=== PATIENT | male | born 1960 | race Caucasian/White ===

== ENCOUNTER → 2016-08-13 | Outpatient (CLI) | payer OTHER ==
[~2016-08-13] MED LIST: AMOX500C3 PO; AMOX875T PO; ASPI81TA28 PO; ATOR-26 PO; CIPR1TAB11 PO; CLC/300 PO; DOXY100C76 PO; DTRSR/10 PO; LEVO-366 PO; LISI-729 PO; LPR25 PO; LSN5 PO; LSX20 PO; MULTTAB PO; OXYB10TA13 PO; OXYC-57 PO; PENI-82 PO; PLV75 PO
[2016-08-13 17:26] LABS: HEMATOCRIT 38.4 % (42-52); MEAN CELL VOLUME 89.7 fL (80-100); MEAN CORPUSCULAR HEMOGLOBIN 29.9 pg (25-34); MEAN CORPUSCULAR HGB CONC 33.3 g/dl (32-36); MEAN PLATELET VOLUME 9.4 fL (7.4-10.4); PLATELET COUNT 677 K/uL (130-400); RED BLOOD COUNT 4.28 M/uL (4.7-6.1); WHITE BLOOD COUNT 15.18 K/uL (4.8-10.8)
[2016-08-13 17:44] LABS: BLOOD UREA NITROGEN 19 mg/dl (7-18); BUN/CREATININE RATIO 19.4 (10-20); CARBON DIOXIDE 25 mmol/L (21-32); CHLORIDE 104 mmol/L (98-107); GLUCOSE 111 mg/dl (70-99); SODIUM 139 mmol/L (136-145)
[2016-08-13 17:47] LABS: CHOLESTEROL 132 mg/dl (0-200); CHOLESTEROL/HDL RATIO 3.8; HDL CHOLESTEROL 35 mg/dl; LDL CHOLESTEROL CALCULATED 73 mg/dl; TRIGLYCERIDES 119 mg/dl (0-150); VERY LOW DENSITY LIPOPROT CALC 24 mg/dl
== END | disposition home or self-care (01) ==
LOC: C.LABPVFM 14:29
PROVIDERS: ATTEND Family Medicine
DX: T14.8 Other injury of unspecified body region (principal); X58.XXXA Exposure to other specified factors, initial encounter; I10 Essential (primary) hypertension; I25.10 Atherosclerotic heart disease of native coronary artery without angina pectoris; Z11.59 Encounter for screening for other viral diseases

== ENCOUNTER → 2016-10-16 | Outpatient (CLI) | payer OTHER ==
[~2016-10-16] MED LIST changes: -CIPR1TAB11 PO; -CLC/300 PO; -DTRSR/10 PO; +GADAVIST IV PRN; -LPR25 PO; -LSX20 PO; -PENI-82 PO
--- NOTE | 2016-10-16 22:44 | DIAGNOSTIC IMAGING REPORT ---
PELVIS AND RIGHT HIP MRI WITH AND WITHOUT INTRAVENOUS CONTRAST HISTORY: Right ischial nonhealing wound. TECHNIQUE: Multiplanar multisequence MRI of the pelvis or right hip were performed both before and after the intravenous administration of contrast. COMPARISON: None. FINDINGS: There is a 7.1 x 2.4 cm right ischial decubitus ulcer. Mild subcutaneous fat stranding and enhancement extends to the ischial tuberosity. However, the cortex remains intact. No abnormal signal abnormality within the visualized osseous structures to suggest osteomyelitis. No acute fracture or dislocation within the pelvis or hips. There is internal fixation of an old left hip fracture. Mildly enlarged right external iliac and right inguinal lymph nodes. Dominant right inguinal lymph node measures 3.0 x 1.9 cm. A few bladder diverticula. No pelvic free fluid. Bladder wall thickening may be due to underdistention. Mild osteoarthritis within the bilateral hips demonstrate by mild cartilage space narrowing. Mild bilateral gluteus medius tendinopathy. Mild asymmetric enhancement at the proximal attachment of the right hamstring tendon complex. There is also fat stranding and enhancement within the proximal right medial thigh with a small subcutaneous fluid collection measuring 2.3 cm. This is best seen on axial image 44 of 50 of series 13. There is small fistulous tract which extends to this fluid collection originating at the proximal medial thigh. This is best in image 40 and measures approximately 6.3 cm in length and up to 8 mm in thickness. IMPRESSION: 1. A 7.1 x 2.4 cm right ischial decubitus ulcer. There is fat stranding and enhancement which extends to the right ischial tuberosity. However, there is no evidence for osteomyelitis at this time. 2. There is also a small fistula tract originating at the proximal medial right thigh which extends anteriorly to a small subcutaneous fluid collection measuring 2.3 cm as described above. This is consistent with a subcutaneous fistula with an associated abscess. 3. Mild right inguinal and external iliac lymphadenopathy which may be reactive. Electronically signed by: Cali Elam M.D. 10/17/2016 10:18 AM Dictated Date/Time: 10/16/2016 10:40 PM
== END | disposition home or self-care (01) ==
LOC: C.MRI 20:04
PROVIDERS: ATTEND Emergency Medicine
DX: L89.159 Pressure ulcer of sacral region, unspecified stage (principal); R59.0 Localized enlarged lymph nodes

== ENCOUNTER → 2016-10-30 | Outpatient (CLI) | payer OTHER ==
[~2016-10-30] MED LIST changes: -AMOX500C3 PO; +CIPR1TAB11 PO; -GADAVIST IV PRN
[2016-10-30 11:11] LABS: PREALBUMIN 18.8 mg/dl (20-40)
== END | disposition home or self-care (01) ==
LOC: C.LAB 09:50
PROVIDERS: ATTEND Physician Assistant
DX: L89.90 Pressure ulcer of unspecified site, unspecified stage (principal)

== ENCOUNTER 2016-11-19 05:28 | Observation (INO) | payer OTHER ==
[2016-11-10 11:33] VITALS: BMI 41.0
[2016-11-12 10:17] LABS: PROTHROMBIN TIME (PATIENT) 10.3 SECONDS (9.0-12.0)
[2016-11-12 10:18] LABS: BASO % 0.4 %; BASO ABS # 0.04 K/uL (0-0.2); COMPLETE YES; EOS % 1.3 %; HEMATOCRIT 40.2 % (42-52); IG% 0.3 %; LYMPH % 14.1 %; LYMPH ABS # 1.58 K/uL (1.2-3.4); MEAN CELL VOLUME 87.6 fL (80-100); MEAN CORPUSCULAR HEMOGLOBIN 28.3 pg (25-34); MEAN CORPUSCULAR HGB CONC 32.3 g/dl (32-36); MEAN PLATELET VOLUME 9.8 fL (7.4-10.4); MONO % 10.1 %; NEUT % 73.8 %; PLATELET COUNT 436 K/uL (130-400); RED BLOOD COUNT 4.59 M/uL (4.7-6.1); WHITE BLOOD COUNT 11.23 K/uL (4.8-10.8)
[2016-11-12 10:30] LABS: BUN/CREATININE RATIO 22.1 (10-20); CALCIUM 8.8 mg/dl (8.5-10.1); CREATININE 1.1 mg/dl (0.60-1.40)
[2016-11-12 11:19] LABS: ESTIMATED AVERAGE GLUCOSE 123 mg/dl; HA1C FLAG Normal (Normal)
[2016-11-12 12:32] LABS: URINE APPEARANCE CLEAR (CLEAR); URINE BILIRUBIN NEG (NEG); URINE COLOR YELLOW; URINE NITRITE NEG (NEG); URINE PH 6.5 (4.5-7.5); UROBILINOGEN NEG (NEG)
[2016-11-12 12:36] LABS: MANUAL MICROSCOPIC REQUIRED? NO; REVIEW REQ? NO
[2016-11-19] VITALS (10 sets, daily range): BP systolic 87–134; BP diastolic 55–93; PULSE 66–85; TEMP 36.3–36.7; O2SAT 93–99; Ht 185.4 cm; Wt 140.0 kg
[~2016-11-19] VITALS: Ht 185.4 cm; Wt 140.0 kg
[~2016-11-19 05:28] MED LIST changes: -CIPR1TAB11 PO; -DOXY100C76 PO; -LEVO-366 PO; -LSN5 PO; -OXYC-57 PO
[2016-11-19] MEDS ORDERED: LACTATED RINGER'S 1000ML 1,000 ML IV SCH (06:00)
[2016-11-19] MEDS ORDERED: CEFAZOLIN 3000 MG/65 ML D5W IV SCH (06:00)
[2016-11-19] MEDS ORDERED: CEFAZOLIN 2000 MG/60 ML D5W IV SCH (06:00)
[2016-11-19] MEDS ORDERED: PROPOFOL IV EMULSION 10 MG/ML 20 ML VIAL IV ONE (06:48)
[2016-11-19] MEDS ORDERED: ONDANSETRON INJ 2 MG/ML 2 ML VIAL ONE ×2 (06:48→13:37)
[2016-11-19] MEDS ORDERED: FENTANYL CITRATE INJ 50 MCG/1 ML 2 ML VIAL ONE ×2 (06:48→12:47)
[2016-11-19] MEDS ORDERED: MIDAZOLAM HCL 1 MG/ML 2ML VIAL ONE ×2 (06:48→12:48)
[2016-11-19] MEDS ORDERED: DEXAMETHASONE SOD INJ 4 MG/ML VIAL ONE ×2 (06:48→06:52)
[2016-11-19] MEDS ORDERED: LIDOCAINE HCL 2% 2 ML VIAL (20MG/ML) ONE ×2 (06:48→13:29)
[2016-11-19] MEDS ORDERED: SUCCINYLCHOLINE CHLORIDE 20 MG/ML 10 ML VIAL IV ONE (06:49)
--- NOTE | 2016-11-19 07:02 | History & Physical Bridge Note ---
H&P Re-Evaluation Bridge Note: I have examined the patient, reviewed the History & Physical and in the interval since the performance of the History & Physical I have noted the following changes of clinical significance: No changes noted
[2016-11-19] MEDS ORDERED: LIDOCAINE/EPINEPHRINE 1% 20 ML VIAL ONE (07:06)
[2016-11-19] MEDS ORDERED: GELATIN SPONGE SZ 100 ONE ×2 (07:36→12:19)
[2016-11-19] MEDS ORDERED: THROMBIN FOR SOLN 20000 UNIT KIT ONE (07:36)
[2016-11-19] MEDS ORDERED: BUPIVACAINE 0.25% 30 ML VIAL ONE (08:16)
[2016-11-19] MEDS ORDERED: METHYLENE BLUE 0.5% 10 ML VIAL ONE (08:16)
[2016-11-19] MEDS ORDERED: GLYCOPYRROLATE INJ 0.2 MG/ML VIAL ONE (08:21)
[2016-11-19] MEDS ORDERED: NEOSTIGMINE METHYLSULFATE 5 MG/5 ML SYR ONE (08:21)
[2016-11-19] MEDS ORDERED: ROCURONIUM BROMIDE 10 MG/ML 5 ML VIAL ONE (08:21)
[2016-11-19] MEDS ORDERED: PHENYLEPHRINE 100MCG/ML 5ML SYR ONE (08:26)
[2016-11-19] MEDS ORDERED: EpHEDrine SULFATE 50MG/5ML SYR ONE (08:48)
[2016-11-19] MEDS ORDERED: SODIUM CHLORIDE 0.9% 1000ML 1,000 ML IV SCH (08:55)
--- NOTE | 2016-11-19 08:55 | [facility] Post Operative Brief Note ---
Immediate Operative Summary Operative Date Nov 19, 2016. Pre-Operative Diagnosis Stage 3 Ischial pressure ulcer Post-Operative Diagnosis same os preoperative Procedure(s) Performed Debridement Stage III Pressure Ulcer, Application of Wound Vac Surgeon Dr. Neeta Ruiz Sales Representative Metals Surgeon(s) Kristina Newman-[facility] Estimated Blood Loss 10 cc Findings debrided to clean healthy tissue, no tunneling or bone involvement Specimens Right Ischium Tissue sent for Routine Culture and sensitivity, and aerobic/anaerobic microbes per Dr. Ruiz Anesthesia general Complication(s) None Disposition Recovery Room / PACU
[2016-11-19] MEDS ORDERED: OXYC-57 PO (08:57)
[2016-11-19] MEDS ORDERED: ONDANSETRON INJ 2 MG/ML 2 ML VIAL IV PRN ×4 (09:00→14:00)
[2016-11-19] MEDS ORDERED: FLOSEAL HEMOSTATIC MATRIX 10ML TOP ONE (09:00)
[2016-11-19] MEDS ORDERED: ACETAMINOPHEN 325 MG TAB PO PRN ×2 (09:00→13:45)
[2016-11-19] MEDS ORDERED: OXYCODONE/ACETAMINOPHEN 5-325 TAB PO PRN ×4 (09:00→13:45)
[2016-11-19] MEDS ORDERED: METOCLOPRAMIDE HCL INJ 5 MG/ML 2 ML VIAL IV PRN (09:00)
--- NOTE | 2016-11-19 09:10 | Discharge Instructions ---
Discharge Instructions Date of Service Nov 19, 2016. Admission Reason for Admission: Stage III Right Ischial Pressure Ulcer Discharge Discharge Diagnosis / Problem: Stage 3 Right Ischial Pressure Ulcer Discharge Goals Goal(s): Improve function Activity Recommendations Activity Limitations: per Instructions/Follow-up section ACTIVITY RECOMMENDATIONS: __Normal activities _x_No bending, lifting or straining. Must off-load wound. __No driving __Driving allowed when you are off pain medications __Walking permitted __You should have help at home for ___ days DRESSINGS: __No dressings required _x_Keep dressings dry/in place until first office visit. Reinforce vac as needed __Remove dressings ___ and leave dressings off __Apply ice ___ days __Remove dressings and reapply garment __Apply antibiotic ointment (Bacitracin, Neosporin, etc) to wounds 3-4 times/ day for 10 days BATHING: _x_Keep dressings dry __Sponge bathing permitted __Showering permitted __No swimming, hot tubs or soaking in a tub MEDICATIONS: Resume previous medications unless instructed otherwise by your surgeon. _x_Do not use aspirin, Motrin, Advil or Ibuprofen as these may promote bleeding. Please use Tylenol. _x_Prescription(s) provided: Pain medication was provided OTHER INSTRUCTIONS: __Record drain output 2-3 times per day SPECIAL CARE INSTRUCTIONS: * It is normal to have a mild fever after surgery. If your temperature is higher than 101.5 degrees F, please call the office at [phone]. * Constipation is a typical side effect of pain medication. An over-the- counter stool softener will help relieve this. * Leaking around surgical drains may occur and should not cause concern. Sometimes these drains become clogged. If this happens, remove the bulb and milk the clot out of the tube, then replace the bulb. * Drainage from wounds after liposuction is normal and should be expected. Garments will become soiled. You should protect furniture and bedding. This drainage should mostly subside within 2-3 days. Leave garments in place unless instructed to remove them. * If you have unusual drainage from a wound or are concerned you have an infection or have any questions or concerns, please call the office at [phone]. FOLLOW UP VISIT: You should be seen at wound care on Thursday. . Current Hospital Diet Patient's current hospital diet: Discharge Diet Recommended Diet: Regular Diet Procedures Procedures Performed: Debridement Stage III Pressure Ulcer, Application of Wound Vac Pending Studies Studies pending at discharge: yes List of pending studies: culture Laboratory Results Hemoglobin A1c Test 11/12/16 09:13 Range/Units Estimated Average Glucose 123 mg/dl Hemoglobin A1c 5.9 H 4.5-5.6 % Medical Emergencies . Who to Call and When: Medical Emergencies: If at any time you feel your situation is an emergency, please call 911 immediately. . Non-Emergent Contact Non-Emergency issues call your: Primary Care Provider, Surgeon . "Provider Documentation" section prepared by Kristina Newman. . VTE Core Measure Inpt VTE Proph given/why not?: SCD's [place] Drug Monitoring Program Search Results: no issues identified
[2016-11-19] MEDS ORDERED: HYDROmorphone INJ 1 MG/ML SYR IV PRN ×2 (09:45→14:00)
[2016-11-19] MEDS ORDERED: EpHEDrine SULFATE INJ 50 MG/ML AMP IV PRN ×2 (09:45→14:00)
[2016-11-19] MEDS ORDERED: LABETALOL HCL IV 5 MG/ML 20ML IV PRN ×2 (09:45→14:00)
[2016-11-19] MEDS ORDERED: PROMETHAZINE HCL INJ 12.5 MG in SODIUM CHLORIDE 0.9% 50ML 50 ML IV PRN ×2 (09:45→14:00)
[2016-11-19] MEDS ORDERED: NALOXONE HCL 0.4 MG/1 ML VIAL/CARP IV PRN ×2 (09:45→14:00)
[2016-11-19] MEDS ORDERED: ATROPINE SULFATE 0.1 MG/ML 5ML SYR IV PRN ×2 (09:45→14:00)
[2016-11-19] MEDS ORDERED: FLUMAZENIL 0.1 MG/1 ML 10 ML VIAL IV PRN (09:45)
--- NOTE | 2016-11-19 10:23 | Anesthesiology Progress Note ---
Anesthesia Post Op Note Date & Time Nov 19, 2016 at 10:22 Vital Signs Pain Intensity: 0 Vital Signs Past 12 Hours Date Time Temp Pulse Resp B/P Pulse Ox O2 Delivery O2 Flow Rate FiO2 11/19/16 10:20 36.3 82 17 127/80 94 Room Air 11/19/16 10:10 82 16 137/82 95 Room Air 11/19/16 10:00 88 16 132/80 96 Room Air 11/19/16 09:50 80 16 135/75 100 Mask 10 11/19/16 09:40 84 16 112/72 99 Mask 10 11/19/16 09:34 36.2 84 16 167/72 99 Mask 10 11/19/16 05:59 36.7 80 18 118/72 96 Room Air Notes Mental Status: alert / awake / arousable, participated in evaluation Pt Amnestic to Procedure: Yes Nausea / Vomiting: adequately controlled Pain: adequately controlled Airway Patency, RR, SpO2: stable & adequate BP & HR: stable & adequate Hydration State: stable & adequate Anesthetic Complications: no major complications apparent
[2016-11-19] MEDS ORDERED: ALBUMIN HUMAN 5% 12.5 GM/250 ML VIAL IV ONE (12:17)
--- NOTE | 2016-11-19 12:30 | Progress Note ---
Progress Note Date of Service Nov 19, 2016. Progress Note Nurses were getting ready to discharge patient home when copious bleeding noted. I was contacted and returned to evaluate patient BP 80's/50s, HR 70 in trendelenburg VAC removed, large clot noted at surgical site with active bleeding as well Due to significant active bleeding, decreased BP, patient's use of ASA/plavix and body habitus, I feel safest course is re-exploration in OR Additional IV access established, Hb pending
[2016-11-19 12:48] LABS: HEMATOCRIT 34.1 % (42-52); MEAN CORPUSCULAR HEMOGLOBIN 28.8 pg (25-34); MEAN PLATELET VOLUME 9.3 fL (7.4-10.4); PLATELET COUNT 340 K/uL (130-400); RED BLOOD COUNT 3.79 M/uL (4.7-6.1); WHITE BLOOD COUNT 9.38 K/uL (4.8-10.8)
[2016-11-19] MEDS ORDERED: CEFAZOLIN SOD 1 GM VIAL ONE (13:28)
[2016-11-19] MEDS ORDERED: ETOMIDATE 2 MG/ML 20 ML VIAL IV ONE (13:29)
[2016-11-19] MEDS ORDERED: OXAZEPAM 10MG CAP PO PRN (13:45)
[2016-11-19] MEDS ORDERED: MoRPHine SULFATE 4 MG/ML 1 ML CARP\\VIAL IV PRN (13:45)
[2016-11-19] MEDS ORDERED: PROCHLORPERAZINE INJ 5 MG in SYRINGE 4 ML IV PRN (13:45)
[2016-11-19] MEDS ORDERED: MoRPHine SULFATE 2 MG/ML CARP IV PRN ×2 (13:45)
[2016-11-19] MEDS ORDERED: DiphenhydrAMINE HCL 50 MG/ML VIAL IV PRN (13:45)
[2016-11-19] MEDS ORDERED: IV FLUIDS COMPLETED PRN (14:15)
--- NOTE | 2016-11-19 14:32 | Anesthesiology Progress Note ---
Anesthesia Post Op Note Date & Time Nov 19, 2016 at 14:31 Vital Signs Pain Intensity: 0 Vital Signs Past 12 Hours Date Time Temp Pulse Resp B/P Pulse Ox O2 Delivery O2 Flow Rate FiO2 11/19/16 14:20 75 14 125/76 100 Nasal Cannula 3 11/19/16 14:10 70 16 109/74 97 Nasal Cannula 3 11/19/16 14:03 36 72 16 135/73 97 Nasal Cannula 3 11/19/16 12:45 36.4 68 16 94/51 99 Nasal Cannula 2 11/19/16 12:40 36.4 65 16 95/50 98 Nasal Cannula 2 11/19/16 12:30 36.5 65 16 116/70 99 Nasal Cannula 2 11/19/16 12:20 36.5 68 16 91/53 98 Nasal Cannula 2 11/19/16 12:10 36.7 73 16 94/56 99 Nasal Cannula 2 11/19/16 12:09 36.5 73 18 95/66 97 Nasal Cannula 2 11/19/16 12:05 36.5 67 18 98/61 97 Nasal Cannula 2 11/19/16 11:52 36.5 74 16 83/50 97 Nasal Cannula 2 11/19/16 11:50 36.5 70 16 74/39 97 Nasal Cannula 2 11/19/16 10:41 36.4 81 16 124/86 95 Room Air 0 11/19/16 10:20 36.3 82 17 127/80 94 Room Air 11/19/16 10:10 82 16 137/82 95 Room Air 11/19/16 10:00 88 16 132/80 96 Room Air 11/19/16 09:50 80 16 135/75 100 Mask 10 11/19/16 09:40 84 16 112/72 99 Mask 10 11/19/16 09:34 36.2 84 16 167/72 99 Mask 10 11/19/16 05:59 36.7 80 18 118/72 96 Room Air Notes Mental Status: alert / awake / arousable, participated in evaluation Pt Amnestic to Procedure: Yes Nausea / Vomiting: adequately controlled Pain: adequately controlled Airway Patency, RR, SpO2: stable & adequate BP & HR: stable & adequate Hydration State: stable & adequate Anesthetic Complications: no major complications apparent
--- NOTE | 2016-11-19 14:35 | [facility] Post Operative Brief Note ---
Immediate Operative Summary Operative Date Nov 19, 2016. Pre-Operative Diagnosis Post op bleeding Post-Operative Diagnosis Same Procedure(s) Performed Re-exploration of ischial wound Surgeon Dr Ruiz Labor Commissioner Surgeon(s) Neeta Newman PA-C Estimated Blood Loss 300ML Findings no significant active bleeding Specimens none Anesthesia general Complication(s) None Disposition Recovery Room / PACU
--- NOTE | 2016-11-19 15:16 | Progress Note ---
Progress Note Date of Service Nov 19, 2016. Progress Note Patient seen and examined in PACU. c/o sore throat from ET tube, otherwise no concerns afebrile BP 124/74 pulse 67 right buttock dressing intact without evidence of bleeding or drainage Hbg 10.9 Doing well post op. Will monitor overnight Dressing to be removed in am, if no s/s bleeding will have VAC placed by WOCN. Operative findings discussed with patient.
--- NOTE | 2016-11-19 15:20 | OPERATIVE REPORT ---
DATE OF OPERATION: 11/19/2016 PREOPERATIVE DIAGNOSIS: Stage III right ischial pressure ulcer. POSTOPERATIVE DIAGNOSIS: Same. PROCEDURE: Excisional debridement of stage III right ischial pressure ulcer in preparation for application of the wound VAC. SURGEON: Neeta Ruiz MD ANTI [employer] OPERATIONS OFFICER: Kristina Newman PA-C ANESTHESIA: General. COMPLICATIONS: None. INDICATION FOR THE PROCEDURE: The patient is a 56-year-old male whom I was asked to evaluate at the wound care center for a slowly healing right ischial ulcer. Debridement was recommended in order to facilitate functionality of the wound VAC and healing of the wound. Risks and benefits of the procedure were reviewed. The patient desired to proceed. BRIEF DESCRIPTION OF THE PROCEDURE: The patient was identified and marked in the preoperative holding area. He was brought to the operating room where he was placed under anesthesia and positioned in the left lateral position without incident. A VAC dressing was removed. Surgical site was prepped and draped sterilely. A time-out procedure was performed. A 0.25% Marcaine plain, mixed with 1% lidocaine with epinephrine was used to anesthetize the wound edges. Methylene blue was used to paint the inside of the wound in order to ensure complete debridement. A 15 blade scalpel was used to make the circular incision surrounding the wound in order to freshen the wound edges. Electrocautery was used to deepen the incision. The entire base of the ulcer was removed using electrocautery. A deep tissue sample was sent for tissue culture. Specimen was sent for pathology. Hemostasis was achieved using electrocautery. Given the patient's aspirin and Plavix use as well as the potential for bleeding from the surgical site, 10 mL of FloSeal was placed. The patient was observed in the operating room during the application of the wound VAC, which was performed by the WO. Silver dressing was placed. There was no evidence of bleeding. The patient remained stable throughout the procedure and was transferred to the recovery room in satisfactory condition. Wound dimensions were 5 x 4 x 3 cm pre-debridement and 6 x 5 x 4 cm post-debridement and debridement involved the skin and subcutaneous tissue only using electrocautery. Of note, prior to the completion of this dictation, I was contacted by the recovery room personnel as they were preparing to discharge the patient home regarding postoperative bleeding. This will be dictated in a separate operative note. I attest to the content of the Intraoperative Record and any orders documented therein. Any exceptions are noted below. MTDD
--- NOTE | 2016-11-19 15:22 | OPERATIVE REPORT ---
DATE OF OPERATION: 11/19/2016 PREOPERATIVE DIAGNOSES: Postoperative bleeding and hypotension, status post debridement of right ischial ulcer. POSTOPERATIVE DIAGNOSES: Same. PROCEDURE: Reexploration of right medial wound for bleeding and evacuation of the hematoma. SURGEON: Neeta Ruiz MD DIGITAL COLOR PRESS OPERATOR: Kristina Newman PA-C ANESTHESIA: General. COMPLICATIONS: None. INDICATION FOR THE PROCEDURE: The patient is a 56-year-old male with spina bifida and a stage III pressure ulceration who I performed a wound debridement on earlier today. A wound VAC was applied post-procedure and the patient was at that time transferred to recovery room in satisfactory condition and was being prepared for discharge. Per the recovery room nursing staff, the surgical site had remained dry and throughout postoperative course and then acutely began to bleed. I was contacted and returned to the hospital medially to evaluate the patient. At that point in time, the patient's blood pressure was 80s/50s, pulse 70. Wound VAC was removed and there was noted to be a large clot as well as active bleeding from the surgical site. Due to the location of the wound and the patient's large body habitus as well as the use of aspirin and Plavix, I felt the course of action would be to return to the operating room. Consent was obtained from the patient's family. The patient was in agreement with this plan as well. BRIEF DESCRIPTION OF THE PROCEDURE: Risks, benefits, and alternatives of the procedure were explained to the patient and family agreed and signed consent. He was identified and marked and brought to the operating room where he was placed under general anesthesia and positioned in the left lateral position. Surgical site was prepped and draped. A time-out procedure was performed. The remaining dressings were removed and about 300 mL of clotted blood was removed from the surgical site on the right ischium. Pulse irrigation was used to irrigate out the hematoma. The wound bed was explored for any evidence of active bleeding. There were some small fairly superficial bleeders which were noted and cauterized, but there was not significant active bleeding vessel. While the wound bed did appear to be relatively dry, any small oozing was cauterized and 10 mL of FloSeal followed by Gelfoam were packed into the wound. The wound was again observed for bleeding for several minutes in the operating room prior to placing the dressing. A 3 inch Kerlix soaked in saline was placed into the wound bed and the wound was dressed with 4 x 4's and an ABD pad with silk tape. The patient was transferred off the operating room table onto an EH mattress and was extubated and remained in the left lateral position in order to offload pressure from the surgical site. Preoperative hemoglobin was obtained and was noted to be 10.9. The patient was hemodynamically stable following evacuation of hematoma. He was transferred to the recovery room in satisfactory condition. Wound care will be consulted for placement of a wound VAC tomorrow after we have inspected the surgical site. Total blood loss was approximately 300 mL. I attest to the content of the Intraoperative Record and any orders documented therein. Any exceptions are noted below. SILVIANO
[2016-11-19] MEDS: D5W AND 1/2NSS + 20MEQ KCL 1,000 ML IV SCH (17:29)
[2016-11-19] MEDS: CEFAZOLIN IV 1,000 MG in DEXTROSE 5% 50ML 50 ML IV SCH (18:25)
--- NOTE | 2016-11-19 18:54 | Medical Consult ---
Consultation Date of Consultation: Nov 19, 2016. Attending Physician: Neeta Ruiz MD Reason for Consultation: Medical management History of Present Illness 56 yo male with h/o spina bifida with decreased lower extremity sensation and weakness, requires crutches for ambulation and sits in wheelchair, also has neurogenic bladder and straight catheterizations daily, admitted overnight after he had ischial tuberosity ulcer debrided and wound vac placement. The patient tolerated initial procedure well but then had some hypotension and the wound had bleeding with a large amount of clot so he was taken back to the OR by Dr. Ruiz. Hemostasis achieved an new wound vac placed. Patient transferred to the floor in stable condition. Currently the patient feels well, just finished eating pizza and breadsticks for dinner. No nausea, no chest pain, no shortness of breath. His pre-op lab work was normal. His vital signs since the procedure have been stable. Past Medical/Surgical History Chronic diastolic heart failure STEMI in 09/2015 HTN Hyperlipidemia MRSA infections Neurogenic bladder with straight cath UTI secondary to catheterizations Spina bifida Family History Heart disease Social History Smoking Status: Former Smoker Drug Use: none Marital Status: Housing Status: lives with family Occupation Status: employed Allergies Coded Allergies: No Known Allergies (Verified , 11/19/16) Home Medications Lisinopril Lipitor Ditropan Percocet Augmentin Aspirin Plavix Current Inpatient Medications Current Inpatient Medications Medications (Trade) Dose Ordered Sig/Lindsay Route Start Time Stop Time Status Last Admin Dose Admin Lactated Ringer's 1,000 ml @ 15 mls/hr Q24H IV 11/19/16 06:00 11/20/16 05:59 11/19/16 06:10 15 MLS/HR Sodium Chloride (Nss 1000ml) 1,000 ml @ 15 mls/hr Q24H IV 11/19/16 08:55 11/20/16 08:54 Metoclopramide HCl (Reglan Inj) 5 mg Q6H PRN IV 11/19/16 09:00 11/20/16 08:59 Ondansetron HCl (Zofran Inj) 4 mg Q6H PRN IV 11/19/16 09:00 11/20/16 08:59 Oxycodone/ Acetaminophen (Percocet 5-325mg Tab) 1 tab Q4H PRN PO 11/19/16 09:00 11/20/16 08:59 Oxycodone/ Acetaminophen (Percocet 5-325mg Tab) 2 tab Q4H PRN PO 11/19/16 09:00 11/20/16 08:59 Acetaminophen 650 mg 650 mg Q4H PRN PO 11/19/16 09:00 11/20/16 08:59 Potassium Chloride/Dextrose/ Sod Cl (D5W And 1/2nss + 20meq KCl) 1,000 ml @ 100 mls/hr Q10H IV 11/19/16 17:00 12/19/16 16:59 11/19/16 17:29 100 MLS/HR Acetaminophen (Tylenol Tab) 650 mg Q4H PRN PO 11/19/16 13:45 12/19/16 13:44 Morphine Sulfate (MoRPHine SULFATE INJ) 1 mg Q1H PRN IV 11/19/16 13:45 12/03/16 13:44 Oxycodone/ Acetaminophen (Percocet 5-325mg Tab) 1 tab Q4H PRN PO 11/19/16 13:45 12/03/16 13:44 Morphine Sulfate (MoRPHine SULFATE INJ) 2 mg Q1H PRN IV 11/19/16 13:45 12/03/16 13:44 Oxycodone/ Acetaminophen (Percocet 5-325mg Tab) 2 tab Q4H PRN PO 11/19/16 13:45 12/03/16 13:44 Morphine Sulfate (MoRPHine SULFATE INJ) 4 mg Q1H PRN IV 11/19/16 13:45 12/03/16 13:44 Ondansetron HCl 4 mg 4 mg ONE PRN IV 11/19/16 13:45 12/19/16 13:44 Cefazolin Sodium/ Dextrose (Ancef Iv/D5 50ml) 55 ml @ 100 mls/hr Q8H IV 11/19/16 18:00 11/20/16 02:32 11/19/16 18:25 100 MLS/HR Multivitamins (Multivitamin Tab) 1 tab DAILY PO 11/20/16 09:00 12/20/16 08:59 Diphenhydramine HCl (Benadryl Cap) 25 mg Q6H PRN PO 11/19/16 13:45 12/19/16 13:44 Diphenhydramine HCl (Benadryl Inj) 25 mg Q6H PRN IV 11/19/16 13:45 12/19/16 13:44 Oxazepam 10 mg 10 mg HS PRN PO 11/19/16 13:45 12/19/16 13:44 Prochlorperazine Edisylate/Syringe (Compazine Inj/ Syringe) 5 ml @ 5 mls/min Q6H PRN IV 11/19/16 13:45 12/19/16 13:44 Atorvastatin Calcium (Lipitor Tab) 80 mg QAM PO 11/20/16 09:00 12/20/16 08:59 Lisinopril (Zestril Tab) 5 mg QAM PO 11/20/16 09:00 12/20/16 08:59 Oxybutynin Chloride (Ditropan-Xl Tab) 10 mg QAM PO 11/20/16 09:00 12/20/16 08:59 Hydromorphone HCl (Dilaudid Inj) 0.25 mg Q5M PRN IV 11/19/16 14:00 11/19/16 19:00 Naloxone HCl (Narcan Inj) 0.2 mg Q2M PRN IV 11/19/16 14:00 11/19/16 19:00 Ondansetron HCl 4 mg 4 mg ONE PRN IV 11/19/16 14:00 11/19/16 19:00 Promethazine HCl/ Sodium Chloride (Phenergan Inj/ Nss 50ml) 50.5 ml @ 202 mls/hr ONE PRN IV 11/19/16 14:00 11/19/16 19:00 Labetalol HCl (Normodyne IV) 5 mg Q5M PRN IV 11/19/16 14:00 11/19/16 19:00 Ephedrine Sulfate (EpHEDrine SULFATE INJ) 5 mg Q5M PRN IV 11/19/16 14:00 11/19/16 19:00 Atropine Sulfate (Atropine Sulfate 0.1MG/Ml Inj) 0.5 mg Q1M PRN IV 11/19/16 14:00 11/19/16 19:00 Miscellaneous (Iv Fluids Completed) 1 ea PRN PRN N/A 11/19/16 14:15 11/19/17 14:14 Review of Systems Constitutional: No chills, No fatigue, No fever, No problem reported, No sweats , No weakness, No weight loss Eyes: No diplopia, No discharge, No eye pain, No problem reported, No redness, No worsening of vision ENT: No dental problems, No hearing loss, No nasal symptoms, No problem reported, No sore throat, No tinnitus, No trouble swallowing, No unusual epistaxis Respiratory: No cough, No dyspnea at rest, No dyspnea on exertion, No hemoptysis, No problem reported, No shortness of breath, No sputum, No wheezing Cardiovascular: No PND, No chest pain, No claudication, No edema, No orthopnea , No palpitations, No problem reported Abdomen: No GI bleeding, No constipation, No diarrhea, No nausea, No pain, No problem reported, No vomiting Musculoskeletal: No calf pain, No joint pain, No muscle pain, No problem reported, No swelling Genitourinary - Male: + problem reported (straight catheterization) Neurologic: + balance problems, + numbness/tingling (feet, right leg, buttocks) , + weakness (lower extremties), No memory loss, No paralysis, No vertigo Psychiatric: No anhedonism, No anxiety, No depression symptoms, No insomnia, No problem reported, No substance abuse Endocrine: No excessive thirst, No excessive urination, No fatigue, No problem reported Hematologic / Lymphatic: No abnormal bleeding/bruising, No clotting problems, No night sweats, No problem reported, No swollen lymph nodes Integumentary: + problem reported (right ischial tuberosity wound with wound vac), No bleeding, No color change, No itch, No new/changing skin lesions, No rash Allergic / Immunologic: No environmental allergies, No food allergies, No frequent infections, No hives, No pet sensitivities, No poor healing, No problem reported, No prolonged convalescence, No seasonal allergies Physical Exam Date Time Temp Pulse Resp B/P Pulse Ox O2 Delivery O2 Flow Rate FiO2 11/19/16 18:00 36.3 66 18 100/66 99 Room Air 11/19/16 16:59 74 20 122/73 98 Room Air 11/19/16 16:30 36.3 69 18 134/93 99 Room Air 11/19/16 16:00 Room Air 11/19/16 16:00 36.4 69 17 107/73 97 Room Air 11/19/16 16:00 97 Room Air 11/19/16 15:30 63 16 113/77 100 Room Air 11/19/16 15:15 75 15 117/69 100 Room Air 11/19/16 15:00 67 16 124/74 100 Nasal Cannula 3 11/19/16 14:45 67 15 115/75 100 Nasal Cannula 3 11/19/16 14:30 36 66 15 118/69 100 Nasal Cannula 3 11/19/16 14:20 75 14 125/76 100 Nasal Cannula 3 11/19/16 14:10 70 16 109/74 97 Nasal Cannula 3 11/19/16 14:03 36 72 16 135/73 97 Nasal Cannula 3 11/19/16 12:45 36.4 68 16 94/51 99 Nasal Cannula 2 11/19/16 12:40 36.4 65 16 95/50 98 Nasal Cannula 2 11/19/16 12:30 36.5 65 16 116/70 99 Nasal Cannula 2 11/19/16 12:20 36.5 68 16 91/53 98 Nasal Cannula 2 11/19/16 12:10 36.7 73 16 94/56 99 Nasal Cannula 2 11/19/16 12:09 36.5 73 18 95/66 97 Nasal Cannula 2 11/19/16 12:05 36.5 67 18 98/61 97 Nasal Cannula 2 11/19/16 11:52 36.5 74 16 83/50 97 Nasal Cannula 2 11/19/16 11:50 36.5 70 16 74/39 97 Nasal Cannula 2 11/19/16 10:41 36.4 81 16 124/86 95 Room Air 0 11/19/16 10:20 36.3 82 17 127/80 94 Room Air 11/19/16 10:10 82 16 137/82 95 Room Air 11/19/16 10:00 88 16 132/80 96 Room Air 11/19/16 09:50 80 16 135/75 100 Mask 10 11/19/16 09:40 84 16 112/72 99 Mask 10 11/19/16 09:34 36.2 84 16 167/72 99 Mask 10 11/19/16 05:59 36.7 80 18 118/72 96 Room Air General Appearance: no apparent distress, + obese Head: normocephalic, atraumatic Eyes: normal inspection, EOMI, sclerae normal ENT: normal ENT inspection, hearing grossly normal, pharynx normal Neck: supple, no adenopathy, no JVD, trachea midline Respiratory/Chest: chest non-tender, lungs clear, normal breath sounds, no respiratory distress, no accessory muscle use Cardiovascular: regular rate, rhythm, no edema, no gallop, no JVD, no murmur, normal peripheral pulses Abdomen/GI: normal bowel sounds, non tender, soft, no organomegaly Back: normal inspection, no CVA tenderness, no muscle spasm, normal range of motion Neurologic/Psych: 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, alert, normal mood/affect, oriented x 3, + motor weakness (profound in lower extremities, chronic) Skin: + pertinent finding (right ischial tuberosity wound vac) Laboratory Results Last 24 Hours Test 11/19/16 12:39 White Blood Count 9.38 K/uL Red Blood Count 3.79 M/uL Hemoglobin 10.9 g/dL Hematocrit 34.1 % Mean Corpuscular Volume 90.0 fL Mean Corpuscular Hemoglobin 28.8 pg Mean Corpuscular Hemoglobin Concent 32.0 g/dl RDW Standard Deviation 53.1 fL RDW Coefficient of Variation 16.1 % Platelet Count 340 K/uL Mean Platelet Volume 9.3 fL Assessment & Plan 56 yo male with spina bifida here after wound debridement and wound vac placement, had some bleeding and requiring second surgery for hemostasis - CAD: would resume aspirin and Plavix when okay with surgery, certainly with recent bleeding would be cautious no chest pain continue Lipitor - Chronic diastolic HF: no signs of volume overload, continue Lisinopril - HTN: BP stable, chronic issue - Neurogenic bladder: straight cath PRN check labs in the AM, should be stable from medical standpoint for discharge
[2016-11-20] MEDS: D5W AND 1/2NSS + 20MEQ KCL 1,000 ML IV SCH (02:22)
[2016-11-20] MEDS: CEFAZOLIN IV 1,000 MG in DEXTROSE 5% 50ML 50 ML IV SCH (02:22)
[2016-11-20 03:12] VITALS: BP 85/47; PULSE 81; TEMP 37; O2SAT 92
[2016-11-20 03:20] VITALS: BP 119/71; PULSE 81; TEMP 37; O2SAT 92
[2016-11-20 06:43] LABS: PROTHROMBIN TIME (PATIENT) 10.6 SECONDS (9.0-12.0)
[2016-11-20 06:47] LABS: BASO % 0.4 %; BASO ABS # 0.03 K/uL (0-0.2); COMPLETE YES; EOS % 2.3 %; HEMATOCRIT 31.8 % (42-52); IG% 0.3 %; LYMPH % 17.9 %; LYMPH ABS # 1.33 K/uL (1.2-3.4); MEAN CELL VOLUME 89.1 fL (80-100); MEAN CORPUSCULAR HEMOGLOBIN 28.3 pg (25-34); MEAN CORPUSCULAR HGB CONC 31.8 g/dl (32-36); MEAN PLATELET VOLUME 9.3 fL (7.4-10.4); NEUT % 70.1 %; PLATELET COUNT 382 K/uL (130-400); RED BLOOD COUNT 3.57 M/uL (4.7-6.1); WHITE BLOOD COUNT 7.41 K/uL (4.8-10.8)
[2016-11-20 07:09] LABS: BUN/CREATININE RATIO 14.6 (10-20); CALCIUM 8.3 mg/dl (8.5-10.1); CREATININE 0.86 mg/dl (0.60-1.40); POTASSIUM 4.2 mmol/L (3.5-5.1)
[2016-11-20 07:37] VITALS: BP 103/64; PULSE 88; TEMP 36.9; O2SAT 91
--- NOTE | 2016-11-20 08:06 | Surgery Progress Note ---
Surgery Progress Note Date of Service Nov 20, 2016. Subjective Post OP Day: 1 + diet (regular), + feeling well, + pain controlled, No complaints VSS overnight Objective Vital Signs: Date Time Temp Pulse Resp B/P Pulse Ox O2 Delivery O2 Flow Rate FiO2 11/20/16 07:37 36.9 88 16 103/64 91 Room Air 11/20/16 03:20 37.0 81 16 119/71 92 Room Air 11/20/16 03:12 37.0 81 16 85/47 92 Room Air 11/19/16 23:50 91/57 11/19/16 23:49 36.6 75 16 89/55 93 Room Air 11/19/16 23:30 92/57 11/19/16 23:15 Room Air 11/19/16 19:00 36.5 85 18 87/58 97 Room Air 11/19/16 18:00 36.3 66 18 100/66 99 Room Air 11/19/16 16:59 74 20 122/73 98 Room Air 11/19/16 16:30 36.3 69 18 134/93 99 Room Air 11/19/16 16:00 Room Air 11/19/16 16:00 36.4 69 17 107/73 97 Room Air 11/19/16 16:00 97 Room Air 11/19/16 15:30 63 16 113/77 100 Room Air 11/19/16 15:15 75 15 117/69 100 Room Air 11/19/16 15:00 67 16 124/74 100 Nasal Cannula 3 11/19/16 14:45 67 15 115/75 100 Nasal Cannula 3 11/19/16 14:30 36 66 15 118/69 100 Nasal Cannula 3 11/19/16 14:20 75 14 125/76 100 Nasal Cannula 3 11/19/16 14:10 70 16 109/74 97 Nasal Cannula 3 11/19/16 14:03 36 72 16 135/73 97 Nasal Cannula 3 11/19/16 12:45 36.4 68 16 94/51 99 Nasal Cannula 2 11/19/16 12:40 36.4 65 16 95/50 98 Nasal Cannula 2 11/19/16 12:30 36.5 65 16 116/70 99 Nasal Cannula 2 11/19/16 12:20 36.5 68 16 91/53 98 Nasal Cannula 2 11/19/16 12:10 36.7 73 16 94/56 99 Nasal Cannula 2 11/19/16 12:09 36.5 73 18 95/66 97 Nasal Cannula 2 11/19/16 12:05 36.5 67 18 98/61 97 Nasal Cannula 2 11/19/16 11:52 36.5 74 16 83/50 97 Nasal Cannula 2 11/19/16 11:50 36.5 70 16 74/39 97 Nasal Cannula 2 11/19/16 10:41 36.4 81 16 124/86 95 Room Air 0 11/19/16 10:20 36.3 82 17 127/80 94 Room Air 11/19/16 10:10 82 16 137/82 95 Room Air 11/19/16 10:00 88 16 132/80 96 Room Air 11/19/16 09:50 80 16 135/75 100 Mask 10 11/19/16 09:40 84 16 112/72 99 Mask 10 11/19/16 09:34 36.2 84 16 167/72 99 Mask 10 General Appearance: WD/WN, no apparent distress Incision(s): clean, dry, findings (packing removed revealing dry wound with bed of healthy granulation tissue. There was a small amount of bleedin gin base of wound. The entire base was cauterized with silver nitrate. The wound was packed with kerlix moistened with safe gel) Laboratory Results: Results Past 24 Hours Test 11/19/16 12:39 11/20/16 06:05 Range/Units White Blood Count 9.38 7.41 4.8-10.8 K/uL Red Blood Count 3.79 3.57 4.7-6.1 M/uL Hemoglobin 10.9 10.1 14.0-18.0 g/dL Hematocrit 34.1 31.8 42-52 % Mean Corpuscular Volume 90.0 89.1 80-100 fL Mean Corpuscular Hemoglobin 28.8 28.3 25-34 pg Mean Corpuscular Hemoglobin Concent 32.0 31.8 32-36 g/dl RDW Standard Deviation 53.1 53.4 36.4-46.3 fL RDW Coefficient of Variation 16.1 16.0 11.5-14.5 % Platelet Count 340 382 130-400 K/uL Mean Platelet Volume 9.3 9.3 7.4-10.4 fL Neutrophils (%) (Auto) 70.1 % Lymphocytes (%) (Auto) 17.9 % Monocytes (%) (Auto) 9.0 % Eosinophils (%) (Auto) 2.3 % Basophils (%) (Auto) 0.4 % Neutrophils # (Auto) 5.19 1.4-6.5 K/uL Lymphocytes # (Auto) 1.33 1.2-3.4 K/uL Monocytes # (Auto) 0.67 0.11-0.59 K/uL Eosinophils # (Auto) 0.17 0-0.5 K/uL Basophils # (Auto) 0.03 0-0.2 K/uL Immature Granulocyte % (Auto) 0.3 % Immature Granulocyte # (Auto) 0.02 0.00-0.02 K/uL Prothrombin Time 10.6 9.0-12.0 SECONDS Prothromb Time International Ratio 1.0 0.9-1.1 Activated Partial Thromboplast Time 26.3 21.0-31.0 SECONDS Partial Thromboplastin Ratio 1.0 Sodium Level 142 136-145 mmol/L Potassium Level 4.2 3.5-5.1 mmol/L Chloride Level 108 98-107 mmol/L Carbon Dioxide Level 29 21-32 mmol/L Anion Gap 5.0 3-11 mmol/L Blood Urea Nitrogen 13 7-18 mg/dl Creatinine 0.86 0.60-1.40 mg/dl Est Creatinine Clear Calc Drug Dose 141.0 ml/min Estimated GFR () 112.4 Estimated GFR (Non- 96.9 BUN/Creatinine Ratio 14.6 10-20 Random Glucose 131 70-99 mg/dl Calcium Level 8.3 8.5-10.1 mg/dl Microbiology Results 11/19/16 Gram Stain - Final, Resulted 11/19/16 Bacterial Culture, Resulted Pending Assessment & Plan s/p debridement of Stage 3 ischial ulcer with return to OR for hemostasis 1. labs reviewed and reflect expected post-operative blood loss. BP stable. 2. Patient will continue to hole plavix and Aspirin until Thursday. Discussed with wound care team- will re-pack wound today and and he will follow-up with them tomorrow as an outpatient to apply wound vac. Patient was also seen and examined by Dr. Ruiz.
[2016-11-20] MEDS ORDERED: LISINOPRIL 5 MG TAB PO SCH (09:00)
[2016-11-20] MEDS ORDERED: ATORVASTATIN 40 MG TAB PO SCH (09:00)
[2016-11-20] MEDS ORDERED: OXYBUTYNIN CHLORIDE 5 MG TABCR PO SCH (09:00)
[2016-11-20] MEDS ORDERED: MULTIVITAMIN TAB PO SCH (09:00)
--- NOTE | 2016-11-20 10:05 | Anesthesiology Progress Note ---
Anesthesia Post Op Note Date & Time Nov 20, 2016 at 10:05 Vital Signs Pain Intensity: 0.0 Vital Signs Past 12 Hours Date Time Temp Pulse Resp B/P Pulse Ox O2 Delivery O2 Flow Rate FiO2 11/20/16 07:37 36.9 88 16 103/64 91 Room Air 11/20/16 03:20 37.0 81 16 119/71 92 Room Air 11/20/16 03:12 37.0 81 16 85/47 92 Room Air 11/19/16 23:50 91/57 11/19/16 23:49 36.6 75 16 89/55 93 Room Air 11/19/16 23:30 92/57 11/19/16 23:15 Room Air Notes Mental Status: alert / awake / arousable, participated in evaluation Pt Amnestic to Procedure: Yes Nausea / Vomiting: adequately controlled Pain: adequately controlled Airway Patency, RR, SpO2: stable & adequate BP & HR: stable & adequate Hydration State: stable & adequate Anesthetic Complications: no major complications apparent
[2016-11-20 10:46] VITALS: BP 103/64; PULSE 88; TEMP 36.9; O2SAT 91
--- NOTE | 2016-11-20 10:54 | Discharge Summary ---
Discharge Summary Date of Service Nov 20, 2016. Admission Date/Reason Nov 19, 2016 at 07:00 Stage III Right Ischial Pressure Ulcer. Discharge Date/Disposition Nov 20, 2016 Home Diagnosis Principal Diagnosis: Stage 3 Right Ischial Pressure Ulcer Secondary Diagnoses/Problems: HTN dyslipidemia obesity heart disease spina bifida Procedure(s) Performed debridement of right ischial pressure ulcer Admission Physical Exam As per Admitting History & Physical. Hospital Course Patient presented to [facility] with history of stage 3 right ischial pressure ulcer. He was taken to the OR and underwent debridement of the wound. Tissue samples were sent for culture. Hemostasis was achieved and wound vac was placed intraoperatively by wound care nurse. The patient was taken to recovery and prepared for discharge when bleeding from wound was noted. The patient was brought back to the OR and the wound was cauterized. There was no active bleeding noted. The wound was observed and then packed with gel foam and moist kerlix. An ABD dressing was applied. The patient was kept for observation. His labs were checked post-operatively and in the AM and they reflected expected post-operative changes. His VSS overnight. He tolerated a regular diet. In the AM, his packing was removed from his wound and revealed healthy granulation tissue There was sa small amount of bleeding noted in wound bed. The entire base of wound was treated with silver nitrate. The wound was re-packed with kerlix moistened with safe gel. He will follow-up as an outpatient with wound care tomorrow for vac placement. Discharge Instructions Please refer to the electronic Patient Visit Report (Discharge Instructions) for additional information.
[2016-11-24] MEDS ORDERED: LEVO-366 PO (15:00)
[2016-12-10] MEDS ORDERED: LEVO-366 PO (09:58)
[2016-12-24] MEDS ORDERED: LEVO-366 PO (09:17)
[2017-01-07] MEDS ORDERED: LEVO-366 PO (09:16)
[2017-01-26] MEDS ORDERED: DOXY100C76 PO (09:24)
[2017-03-04] MEDS ORDERED: DOXY100C76 PO (09:18)
[2017-05-20] MEDS ORDERED: DOXY100C76 PO (08:50)
[2017-06-22] MEDS ORDERED: CIPR1TAB11 PO (08:31)
== END 2016-11-20 11:47 | disposition home health service (06) ==
LOC: ENRESERVTM → ENRESERVDT → C.ACU 05:28 → C.MSN 07:00 → UNDOADMOB 13:44
PROVIDERS: ADMIT Plastic Surgery; ATTEND Plastic Surgery
DX: L89.213 Pressure ulcer of right hip, stage 3 (principal); Q05.9 Spina bifida, unspecified; N31.9 Neuromuscular dysfunction of bladder, unspecified; I95.9 Hypotension, unspecified; I25.10 Atherosclerotic heart disease of native coronary artery without angina pectoris; I10 Essential (primary) hypertension; E78.5 Hyperlipidemia, unspecified; I50.32 Chronic diastolic (congestive) heart failure; E66.9 Obesity, unspecified; I25.2 Old myocardial infarction; Z99.3 Dependence on wheelchair; Z79.82 Long term (current) use of aspirin; Z87.891 Personal history of nicotine dependence

== ENCOUNTER → 2017-03-26 | Outpatient (CLI) | payer OTHER ==
[~2017-03-26] MED LIST changes: -AMOX875T PO; -ASPI81TA28 PO; +DOXY100C76 PO; -PLV75 PO
[2017-03-26 12:32] LABS: BASO % 0.4 %; BASO ABS # 0.03 K/uL (0-0.2); COMPLETE YES; EOS % 2.6 %; IG% 0.3 %; LYMPH % 18.5 %; MEAN CELL VOLUME 84.7 fL (80-100); MEAN CORPUSCULAR HEMOGLOBIN 26.7 pg (25-34); MEAN CORPUSCULAR HGB CONC 31.5 g/dl (32-36); MEAN PLATELET VOLUME 9.5 fL (7.4-10.4); MONO % 9.5 %; NEUT % 68.7 %; PLATELET COUNT 475 K/uL (130-400); RED BLOOD COUNT 4.72 M/uL (4.7-6.1); WHITE BLOOD COUNT 7.58 K/uL (4.8-10.8)
[2017-03-26 12:47] LABS: ALT/SGPT 20 U/L (12-78); AST/SGOT 12 U/L (15-37); BLOOD UREA NITROGEN 22 mg/dl (7-18); BUN/CREATININE RATIO 24.2 (10-20); CALCIUM 8.8 mg/dl (8.5-10.1); CARBON DIOXIDE 26 mmol/L (21-32); CHLORIDE 107 mmol/L (98-107); CREATININE 0.91 mg/dl (0.60-1.40); GLUCOSE 90 mg/dl (70-99); SODIUM 137 mmol/L (136-145)
[2017-03-26 12:51] LABS: ALB/GLOB RATIO 0.7 (0.9-2); ALKALINE PHOSPHATASE 97 U/L (45-117)
== END | disposition home or self-care (01) ==
LOC: C.LAB 09:42
PROVIDERS: ATTEND Emergency Medicine
DX: T81.9XXA Unspecified complication of procedure, initial encounter (principal); Y83.9 Surgical procedure, unspecified as the cause of abnormal reaction of the patient, or of later complication, without mention of misadventure at the time of the procedure

== ENCOUNTER → 2017-03-31 | Outpatient (CLI) | payer OTHER | END | disposition home or self-care (01) | LOC: C.LAB 12:57 | PROVIDERS: ATTEND Emergency Medicine | DX: T14.8 Other injury of unspecified body region (principal); X58.XXXA Exposure to other specified factors, initial encounter ==

== ENCOUNTER → 2017-06-12 | Outpatient (CLI) | payer OTHER ==
[2017-06-12 11:47] LABS: BASO % 0.3 %; BASO ABS # 0.03 K/uL (0-0.2); COMPLETE YES; EOS % 1.2 %; HEMATOCRIT 42.8 % (42-52); IG% 0.2 %; LYMPH % 13.3 %; LYMPH ABS # 1.47 K/uL (1.2-3.4); MEAN CELL VOLUME 88.2 fL (80-100); MEAN CORPUSCULAR HEMOGLOBIN 28.7 pg (25-34); MEAN CORPUSCULAR HGB CONC 32.5 g/dl (32-36); MONO % 10.6 %; NEUT % 74.4 %; PLATELET COUNT 360 K/uL (130-400); RED BLOOD COUNT 4.85 M/uL (4.7-6.1); WHITE BLOOD COUNT 11.08 K/uL (4.8-10.8)
[2017-06-12 12:00] LABS: PARTIAL THROMBOPLASTIN RATIO 1.1; PROTHROMBIN TIME (PATIENT) 10.5 SECONDS (9.0-12.0)
[2017-06-12 12:04] LABS: BLOOD UREA NITROGEN 25 mg/dl (7-18); BUN/CREATININE RATIO 26.7 (10-20); CALCIUM 8.7 mg/dl (8.5-10.1); CARBON DIOXIDE 26 mmol/L (21-32); CHLORIDE 106 mmol/L (98-107); CREATININE 0.93 mg/dl (0.60-1.40); GLUCOSE 87 mg/dl (70-99); POTASSIUM 3.8 mmol/L (3.5-5.1); SODIUM 138 mmol/L (136-145)
[2017-06-12 12:09] LABS: PREALBUMIN 22.8 mg/dl (20-40)
== END | disposition home or self-care (01) ==
LOC: C.LAB 09:37
PROVIDERS: ATTEND Physician Assistant
DX: S31.809A Unspecified open wound of unspecified buttock, initial encounter (principal); X58.XXXA Exposure to other specified factors, initial encounter; L89.313 Pressure ulcer of right buttock, stage 3

== ENCOUNTER → 2017-06-17 | Outpatient (CLI) | payer OTHER | END | disposition home or self-care (01) | LOC: C.LABSPEC 17:32 | PROVIDERS: ATTEND Urology | DX: N31.9 Neuromuscular dysfunction of bladder, unspecified (principal); R31.0 Gross hematuria ==

== ENCOUNTER → 2017-06-23 | Outpatient (CLI) | payer OTHER ==
[~2017-06-23] MED LIST changes: +CIPR1TAB11 PO; +OPTIRAY 320 IV PRN
--- NOTE | 2017-06-23 09:17 | DIAGNOSTIC IMAGING REPORT ---
ABDOMEN AND PELVIS CT WITH AND WITHOUT IV CONTRAST, UROGRAM PROTOCOL CT DOSE: 3024.94 mGycm HISTORY: N31.9 Neurogenic [id number] Gross hematuria TECHNIQUE: Multiaxial CT images of the abdomen and pelvis were performed both before and after the use of intravenous contrast to evaluate the urinary system. Maximal intensity projection images were performed at the workstation by the radiologist. A dose lowering technique was utilized adhering to the principles of ALARA. COMPARISON STUDY: Pelvis MRI 10/16/2016. FINDINGS: No definite renal or ureteral calculi. No bladder calculi.Near nondiagnostic evaluation of the urinary system due to patient positioning and streak artifact from the patient's body abutting the gantry. In addition, there is poor opacification of the right renal collecting system. There is no significant contrast within the right ureter or proximal left ureter. Partial opacification of the left mid to distal ureter shows no definite filling defects. No suspicious filling defects seen within the opacified left renal collecting system and the partially opacified right renal collecting system. Mild fullness within the right renal collecting system without sadia hydronephrosis. The ureters appear to be normal and course and caliber. Severe diffuse bladder wall thickening which is also under distended. There are 2 right-sided diverticula with the largest measuring 2.5 cm. Bladder wall trabeculation. No left-sided hydronephrosis. A few small bilateral renal hypodense lesions which are not well characterized due to the streak artifact. The lung bases are clear. Internal fixation of an old left hip fracture. There are few scattered hypodense lesions within the liver. The largest in the left hepatic lobe measures 2 cm. These are incomplete characterized on this study but favor cysts. Multiple small gallstones. The spleen, adrenal glands, and pancreas are unremarkable. No retroperitoneal lymphadenopathy. No bowel wall thickening or obstruction. Normal appendix. IMPRESSION: 1. No renal or ureteral stones. 2. Near nondiagnostic evaluation of the urinary system due to the poor contrast opacification, artifact, and patient positioning. No definite filling defects identified within the opacified structures as described above. 3. Severe irregular bladder wall thickening with a few right-sided diverticula. The bladder is underdistended. This could obscure an underlying bladder mass. Cystoscopy is recommended for further evaluation. 4. Mild fullness within the right renal collecting system without sadia hydronephrosis. No left-sided hydronephrosis. 5. Additional findings as described above. Electronically signed by: Cali Elam M.D. 06/23/2017 9:15 AM Dictated Date/Time: 06/23/2017 8:59 AM
== END | disposition home or self-care (01) ==
LOC: C.CTS 08:08
PROVIDERS: ATTEND Urology
DX: N31.9 Neuromuscular dysfunction of bladder, unspecified (principal); R31.0 Gross hematuria

== ENCOUNTER → 2017-07-17 | Outpatient (CLI) | payer OTHER ==
[~2017-07-17] MED LIST changes: +ASPI81TA28 PO; +CLOP1TAB54 PO; +FURO-85 PO; +NTRGSL/4 UT; -OPTIRAY 320 IV PRN; +SULF800T23 PO
--- NOTE | 2017-07-17 12:14 | DIAGNOSTIC IMAGING REPORT ---
(TESTICULAR) SCROTUM-CONT CLINICAL HISTORY: 57 years-old Male with TESTICULAR PAIN. Acute scrotal pain COMPARISON STUDY: CT abdomen and pelvis 06/23/2017 TECHNIQUE: Real-time, grayscale, and color Doppler sonography of the testes and scrotum is performed. Images are reviewed in the transverse and longitudinal planes. FINDINGS: RIGHT HEMISCROTUM: The right testis measures 4.4 x 2.5 x 3.2 cm and the parenchyma appears unremarkable. No intratesticular mass is seen. Normal-appearing arterial inflow is present within the right testicle. The right epididymal head appears normal. No varicocele or hydrocele is identified. LEFT HEMISCROTUM: The left testis measures 4.2 x 3.8 x 2.5 cm and appears hypervascular and mildly heterogeneous. No intratesticular mass is seen. Normal-appearing arterial inflow is present within the left testicle. The left epididymal head appears heterogeneous and hypervascular. Moderate sized mildly complex hydrocele. No varicocele identified. Note is made of mild scrotal wall edema. IMPRESSION: 1. Findings suggest left-sided epididymoorchitis with moderate sized complex left hydrocele, possibly reflecting a pyocele. 2. Unremarkable sonographic appearance of the right testicle. No evidence of testicular torsion or mass. 3. Mild scrotal wall edema. The above report was generated using voice recognition software. It may contain grammatical, syntax or spelling errors. Electronically signed by: Gopal Berry M.D. 07/17/2017 12:13 PM Dictated Date/Time: 07/17/2017 12:09 PM
== END | disposition home or self-care (01) ==
LOC: C.ULTRBC 11:11
PROVIDERS: ATTEND Urology
DX: N50.819 Testicular pain, unspecified (principal); N43.3 Hydrocele, unspecified

== ENCOUNTER 2017-08-12 09:49 | Inpatient (IN) | payer OTHER ==
[2017-07-14 15:32] VITALS: BMI 41.0
[2017-08-04 10:01] VITALS: BMI 46.0
--- NOTE | 2017-08-04 10:52 | PAT Medication Instructions ---
Service Date Aug 04, 2017. Current Home Medication List Aspirin (Aspirin Ec), 81 MG PO QAM Atorvastatin (Lipitor), 80 MG PO QAM Clopidogrel Bisulfate (Plavix), 75 MG PO QAM Doxycycline Monohydrate (Monodox), 100 MG PO BID Furosemide (Lasix), 20 MG PO QAM PRN for SWELLING Lisinopril (Prinivil), 5 MG PO QAM Multivitamins/Minerals (Mvi With Minerals), 1 TAB PO QAM Nitroglycerin (Nitrostat), 0.4 MG UT PRN Oxybutynin Chloride Er (Ditropan Xl), 10 MG PO QAM Medication Instructions For Your Scheduled Surgery - Continue as directed: Nitroglycerin (Nitrostat), 0.4 MG UT PRN - Held in preparation for surgery: Clopidogrel Bisulfate (Plavix), 75 MG PO QAM - Hold the following medications the morning of surgery: Furosemide (Lasix), 20 MG PO QAM PRN for SWELLING Lisinopril (Prinivil), 5 MG PO QAM Multivitamins/Minerals (Mvi With Minerals), 1 TAB PO QAM - Take the following medications the morning of surgery with a sip of water OTHERWISE NOTHING TO EAT OR DRINK AFTER MIDNIGHT: Aspirin (Aspirin Ec), 81 MG PO QAM Oxybutynin Chloride Er (Ditropan Xl), 10 MG PO QAM Atorvastatin (Lipitor), 80 MG PO QAM Doxycycline Monohydrate (Monodox), 100 MG PO BID - Take the following medications as scheduled the night before surgery: Doxycycline Monohydrate (Monodox), 100 MG PO BID If you have any questions please call us at [phone] or [phone] or [phone]
[2017-08-04 11:23] LABS: PTT PATIENT 25.9 SECONDS (21.0-31.0)
[2017-08-04 11:28] LABS: BASO % 0.5 %; BASO ABS # 0.05 K/uL (0-0.2); EOS % 1.5 %; EOS ABS # 0.15 K/uL (0-0.5); HEMATOCRIT 42.3 % (42-52); HEMOGLOBIN 13.9 g/dL (14.0-18.0); IG# 0.02 K/uL (0.00-0.02); LYMPH % 15.6 %; LYMPH ABS # 1.55 K/uL (1.2-3.4); MEAN CORPUSCULAR HEMOGLOBIN 29.9 pg (25-34); MEAN CORPUSCULAR HGB CONC 32.9 g/dl (32-36); MONO % 9.3 %; MONO ABS # 0.93 K/uL (0.11-0.59); NEUT % 72.9 %; NEUT ABS # 7.26 K/uL (1.4-6.5); PLATELET COUNT 394 K/uL (130-400); RED CELL DISTRIBUTION WIDTH CV 17.1 % (11.5-14.5); RED CELL DISTRIBUTION WIDTH SD 56.9 fL (36.4-46.3); WHITE BLOOD COUNT 9.96 K/uL (4.8-10.8)
[2017-08-04 12:43] LABS: CREATININE 0.9 mg/dl (0.60-1.40); POTASSIUM 4.1 mmol/L (3.5-5.1)
[~2017-08-12] VITALS: Ht 185.4 cm; Wt 157.6 kg
[2017-08-12] VITALS (7 sets, daily range): BP systolic 119–147; BP diastolic 66–90; PULSE 64–84; TEMP 36.5–36.9; O2SAT 94–98; Ht 185.4 cm; Wt 157.6 kg
[~2017-08-12 09:49] MED LIST changes: +CEFAZOLIN 3000MG IV PUSH 15 ML IV SCH; -CIPR1TAB11 PO; +LACTATED RINGER'S 1000ML 1,000 ML IV SCH; -SULF800T23 PO
[2017-08-12] MEDS ORDERED: ONDANSETRON INJ 2 MG/ML 2 ML VIAL ONE (10:45)
[2017-08-12] MEDS ORDERED: EpHEDrine SULFATE INJ 50 MG/ML AMP ONE (10:45)
[2017-08-12] MEDS ORDERED: MIDAZOLAM HCL 1 MG/ML 2ML VIAL ONE (10:45)
[2017-08-12] MEDS ORDERED: PHENYLEPHRINE HCL INJ 10 MG/ML VIAL ONE (10:45)
[2017-08-12] MEDS ORDERED: DEXAMETHASONE SOD INJ 4 MG/ML VIAL ONE (10:45)
[2017-08-12] MEDS ORDERED: NEOSTIGMINE METHYLSULFATE 5 MG/5 ML SYR ONE (10:45)
[2017-08-12] MEDS ORDERED: GLYCOPYRROLATE INJ 0.2 MG/ML VIAL ONE (10:45)
[2017-08-12] MEDS ORDERED: LIDOCAINE HCL 2% 2 ML VIAL (20MG/ML) ONE (10:45)
[2017-08-12] MEDS ORDERED: PROPOFOL IV EMULSION 10 MG/ML 20 ML VIAL IV ONE (10:45)
[2017-08-12] MEDS ORDERED: SUCCINYLCHOLINE CHLORIDE 20 MG/ML 10 ML VIAL IV ONE (10:45)
[2017-08-12] MEDS ORDERED: FENTANYL CITRATE INJ 50 MCG/1 ML 2 ML VIAL ONE (10:46)
--- NOTE | 2017-08-12 11:32 | History & Physical Bridge Note ---
H&P Re-Evaluation Bridge Note: I have examined the patient, reviewed the History & Physical and in the interval since the performance of the History & Physical I have noted the following changes of clinical significance: Urine cotinine negative
[2017-08-12] MEDS ORDERED: EpHEDrine SULFATE INJ 50 MG/ML AMP IV PRN (11:45)
[2017-08-12] MEDS ORDERED: FENTANYL CITRATE INJ 50 MCG/1 ML 2 ML VIAL IV PRN (11:45)
[2017-08-12] MEDS ORDERED: ATROPINE SULFATE 0.1 MG/ML 5ML SYR IV PRN (11:45)
[2017-08-12] MEDS ORDERED: PROMETHAZINE HCL INJ 6.25 MG in SODIUM CHLORIDE 0.9% 50ML 50 ML IV PRN (11:45)
[2017-08-12] MEDS ORDERED: ONDANSETRON INJ 2 MG/ML 2 ML VIAL IV PRN ×2 (11:45→13:45)
[2017-08-12] MEDS ORDERED: METHYLENE BLUE 0.5% 10 ML VIAL ONE (12:33)
[2017-08-12] MEDS ORDERED: ROCURONIUM BROMIDE 10 MG/ML 5 ML VIAL IV ONE (12:43)
[2017-08-12] MEDS ORDERED: LIDOCAINE/EPINEPHRINE 1% 20 ML VIAL INJ ONE (13:13)
[2017-08-12] MEDS ORDERED: TISSEEL FIBRIN SEALANT 4ML TOP ONE (13:25)
--- NOTE | 2017-08-12 13:29 | [facility] Post Operative Brief Note ---
Immediate Operative Summary Operative Date Aug 12, 2017. Pre-Operative Diagnosis Stage 3 Pressure Wound Right Ischium Post-Operative Diagnosis Stage 3 Pressure Wound Right Ischium Procedure(s) Performed Debridement and Closure of Stage 3 Pressure Wound Right Ischium Surgeon Dr. Neeta Ruiz Staffing Program Manager Surgeon(s) Kristina Newman PA-C Estimated Blood Loss 10ML Findings stage 3 ischial ulcer, no exposed bone Specimens A.) Pressure Ulcer, Right Buttock Complication(s) None Disposition Recovery Room / PACU
[2017-08-12] MEDS ORDERED: ACETAMINOPHEN 325 MG TAB PO PRN (13:45)
[2017-08-12] MEDS ORDERED: OXYCODONE/ACETAMINOPHEN 5-325 TAB PO PRN ×2 (13:45)
[2017-08-12] MEDS ORDERED: FUROSEMIDE 20 MG TAB PO PRN (13:45)
[2017-08-12] MEDS ORDERED: OXAZEPAM 10MG CAP PO PRN (13:45)
[2017-08-12] MEDS ORDERED: NITROGLYCERIN 0.4 MG SL PER TAB CHARGE UT SCH (13:45)
[2017-08-12] MEDS ORDERED: CEFAZOLIN IV 3,000 MG in DEXTROSE 5% 50ML 50 ML IV SCH (13:45)
[2017-08-12] MEDS ORDERED: DiphenhydrAMINE HCL 50 MG/ML VIAL IV PRN (13:45)
[2017-08-12] MEDS ORDERED: PROCHLORPERAZINE IV PRN (13:45)
[2017-08-12] MEDS ORDERED: MoRPHine SULFATE 2 MG/ML CARP IV PRN ×2 (13:45)
[2017-08-12] MEDS ORDERED: MoRPHine SULFATE 4 MG/ML 1 ML CARP\\VIAL IV PRN (13:45)
--- NOTE | 2017-08-12 14:55 | OPERATIVE REPORT ---
DATE OF OPERATION: 08/12/2017 PREOPERATIVE DIAGNOSIS: Stage III right ischial pressure ulcer. POSTOPERATIVE DIAGNOSIS: Same. PROCEDURE: Debridement and closure of stage III right ischial pressure ulcer. SURGEON: Dr. Neeta Ruiz. THREADING MACHINE FEEDER AUTOMATIC: Kristina Newman PA-C. ANESTHESIA: General. COMPLICATIONS: None. INDICATION FOR THE PROCEDURE: The patient is a 57-year-old male with history of spina bifida with gait dysfunction but able to ambulate with crutches who first presented to the wound care center approximately 1 year ago with a stage III pressure ulcer from the result of his wheelchair. For the past year he has been treated with wound VAC and other wound healing modalities as well as operative debridement in October 2016. The wound was felt to be mostly stalled and I was asked to evaluate him for possible closure. Given his morbid obesity and partial ambulatory status, I did not feel muscle flap or fasciocutaneous flap would be appropriate in this case and given the relatively small size of the ulceration I felt that I could attempt primary closure. This was discussed with the patient along with the understanding that in many cases attempts at wound closure in the setting of pressure ulcers fail. We also had multiple discussions about nutrition and smoking cessation, which has posed to be a challenge for him. In fact surgery was previously canceled due to persistent tobacco use. Due to this as well as his below knee amputation, poor nutritional status, diabetes and spina bifida we discussed performing the procedure on an inpatient basis and referring him to a prison facility or rehab facility following the procedure. BRIEF DESCRIPTION OF THE PROCEDURE: Risks, benefits, and alternatives of the procedure were explained to the patient who agreed and signed consent. He was identified and marked in the preoperative holding area. He was brought to the operating room where he was placed under general anesthesia and placed in prone position. Surgical site was prepped and draped sterilely. A time-out procedure was performed. The planned excision was marked. The wound was approximately 4 x 2 cm and 1.5 cm in depth with healthy appearing granulation tissue and minimal slough. It is located in the gluteal fold of the right buttock. The wound base was stained with methylene blue to help facilitate debridement. The wound was then marked in an elliptical fashion in order to allow for closure. 1% lidocaine with epinephrine was used to anesthetize the planned incisions and to assist in hemostasis. A 15 blade scalpel was used to make the elliptical incision. The wound edges were noted to be macerated and slightly rolled and I attempted to make the incision in the healthiest appearing tissue possible, although the wound was surrounded by scar. Electrocautery was then used to deepen the incision and the ulcer was able to be completely excised to mostly underlying healthy fat and muscle. Once all of the methylene blue had been removed with the specimen, I proceeded with irrigation with 3 liters of normal saline via pulse irrigation. Hemostasis was achieved following this using electrocautery. Due to the patient's use of aspirin, Plavix, and a prior history of take back for bleeding I elected to spray the wound base with Tisseel throughout closure. A multilayer closure was performed in order to reapproximate space using 2-0 Vicryl suture. 2-0 interrupted vertical mattress sutures were then placed to promote wound eversion. Following this, the periwound area was cleansed and a Prevena VAC was placed with good seal. The patient was transferred to the bed and positioned supine for extubation. The procedure was tolerated well. There was minimal blood loss. The patient was awakened and transferred to recovery room in satisfactory condition. I attest to the content of the Intraoperative Record and any orders documented therein. Any exception s are noted below.
--- NOTE | 2017-08-12 15:00 | Anesthesiology Progress Note ---
Anesthesia Post Op Note Date & Time Aug 12, 2017 at 15:00 Vital Signs Pain Intensity: 0 Vital Signs Past 12 Hours Date Time Temp Pulse Resp B/P (MAP) Pulse Ox O2 Delivery O2 Flow Rate FiO2 08/12/17 14:40 62 16 123/71 100 Nasal Cannula 2 08/12/17 14:30 36.2 62 16 120/59 98 Nasal Cannula 2 08/12/17 14:20 62 16 121/66 97 Nasal Cannula 2 08/12/17 14:10 68 16 137/74 97 Oxymask 7 08/12/17 14:00 68 16 131/71 97 Oxymask 7 08/12/17 13:50 68 16 136/63 99 Oxymask 7 08/12/17 13:44 36.3 87 16 129/80 99 Oxymask 7 08/12/17 10:18 36.7 83 20 147/80 97 Room Air Notes Mental Status: alert / awake / arousable, participated in evaluation Pt Amnestic to Procedure: Yes Nausea / Vomiting: adequately controlled Pain: adequately controlled Airway Patency, RR, SpO2: stable & adequate BP & HR: stable & adequate Hydration State: stable & adequate Anesthetic Complications: no major complications apparent
--- NOTE | 2017-08-12 18:13 | Medical Consult ---
Consultation Date of Consultation: Aug 12, 2017. Attending Physician: Neeta Ruiz MD Reason for Consultation: Medical management History of Present Illness This is a 57 y/o male with a history of CAD, CA s/p stents, HTN, HLD, spina bifida, neurogenic bladder, and a stage III pressure wound who presents s/p debridement and closure of stage III pressure wound at right ischium with Dr. Ruiz on 08/12 for medical management. The patient reports feeling well postoperatively. He does report a sore throat but otherwise denies complaints. He denies any pain, numbness or tingling. He has a Gonzalez catheter in place. He is eating well postop. The patient denies fevers, chills, sweats, chest pain , palpitations, claudication, cough, wheezing, shortness of breath, nausea, vomiting, abdominal pain, dysuria, hematuria, urinary retention, paralysis, weakness, numbness and tingling. Past Medical/Surgical History Medical Problems: (1) Acute coronary syndrome Status: Acute CAD H/o CA 2012 s/p cardiac stent and CA 2015 s/p cardiac stent HTN HLD Spina bifida Neurogenic bladder Stage III pressure wound at right ischium Left lower leg amputation 2007 Family History Diabetes mellitus Heart disease Myocardial infarction Stroke Social History Smoking Status: Former Smoker (quit 1 month ago) Smokeless Tobacco Use: No Alcohol Use: socially Drug Use: none Marital Status: Housing Status: lives alone (son and daugther in law next door) Occupation Status: employed Allergies Coded Allergies: No Known Allergies (Verified , 08/12/17) Current Inpatient Medications Current Inpatient Medications Medications (Trade) Dose Ordered Sig/Lindsay Route Start Time Stop Time Status Last Admin Dose Admin Lactated Ringer's 1,000 ml @ 15 mls/hr Q24H IV 08/12/17 06:00 08/13/17 05:59 08/12/17 11:09 15 MLS/HR Acetaminophen (Tylenol Tab) 650 mg Q4H PRN PO 08/12/17 13:45 09/11/17 13:44 Morphine Sulfate (MoRPHine SULFATE INJ) 1 mg Q1H PRN IV 08/12/17 13:45 08/26/17 13:44 Oxycodone/ Acetaminophen (Percocet 5-325mg Tab) 1 tab Q4H PRN PO 08/12/17 13:45 08/26/17 13:44 Morphine Sulfate (MoRPHine SULFATE INJ) 2 mg Q1H PRN IV 08/12/17 13:45 08/26/17 13:44 Oxycodone/ Acetaminophen (Percocet 5-325mg Tab) 2 tab Q4H PRN PO 08/12/17 13:45 08/26/17 13:44 Morphine Sulfate (MoRPHine SULFATE INJ) 4 mg Q1H PRN IV 08/12/17 13:45 08/26/17 13:44 Ondansetron HCl (Zofran Inj) 4 mg ONE PRN IV 08/12/17 13:45 09/11/17 13:44 Multivitamins (Multivitamin Tab) 1 tab DAILY PO 08/13/17 09:00 09/12/17 08:59 Diphenhydramine HCl (Benadryl Cap) 25 mg Q6H PRN PO 08/12/17 13:45 09/11/17 13:44 Diphenhydramine HCl (Benadryl Inj) 25 mg Q6H PRN IV 08/12/17 13:45 09/11/17 13:44 Oxazepam (Serax Cap) 10 mg HS PRN PO 08/12/17 13:45 09/11/17 13:44 Prochlorperazine Edisylate 5 mg/ Syringe 1 ml @ 5 mls/min Q6H PRN IV 08/12/17 13:45 09/11/17 13:44 Enoxaparin Sodium (Lovenox Inj) 40 mg DAILY SQ 08/13/17 09:00 09/12/17 08:59 Aspirin (Ecotrin Tab) 81 mg QAM PO 08/13/17 09:00 09/12/17 08:59 Atorvastatin Calcium (Lipitor Tab) 80 mg QAM PO 08/13/17 09:00 09/12/17 08:59 Furosemide (Lasix Tab) 20 mg QAM PRN PO 08/12/17 13:45 09/11/17 13:44 Lisinopril (Zestril Tab) 5 mg QAM PO 08/13/17 09:00 09/12/17 08:59 Nitroglycerin (Nitrostat Tab) 0.4 mg PRN UT 08/12/17 13:45 09/11/17 13:44 Oxybutynin Chloride (Ditropan-Xl Tab) 10 mg QAM PO 08/13/17 09:00 09/12/17 08:59 Lactated Ringer's 1,000 ml @ 80 mls/hr [id number] IV 08/12/17 16:45 09/11/17 16:44 Cefazolin Sodium 3000 mg/Syringe 15 ml @ 3 mls/min Q8H IV 08/12/17 20:00 08/13/17 04:04 Review of Systems See HPI for pertinent positives and negatives. All other systems reviewed and negative. Physical Exam Date Time Temp Pulse Resp B/P (MAP) Pulse Ox O2 Delivery O2 Flow Rate FiO2 08/12/17 16:55 36.5 69 18 144/90 (108) 94 Room Air 08/12/17 16:25 36.5 76 18 145/81 (102) 98 Nasal Cannula 2.0 08/12/17 15:10 62 16 118/54 100 Nasal Cannula 2 08/12/17 15:00 62 16 125/66 100 Nasal Cannula 2 08/12/17 14:50 62 16 118/62 100 Nasal Cannula 2 08/12/17 14:40 62 16 123/71 100 Nasal Cannula 2 08/12/17 14:30 36.2 62 16 120/59 98 Nasal Cannula 2 08/12/17 14:20 62 16 121/66 97 Nasal Cannula 2 08/12/17 14:10 68 16 137/74 97 Oxymask 7 08/12/17 14:00 68 16 131/71 97 Oxymask 7 08/12/17 13:50 68 16 136/63 99 Oxymask 7 08/12/17 13:44 36.3 87 16 129/80 99 Oxymask 7 08/12/17 10:18 36.7 83 20 147/80 97 Room Air General appearance: +Morbidly obese. Well-developed, well-nourished, no apparent distress Head: Normocephalic, atraumatic Eyes: Normal inspection, PERRL, EOMI ENT: Normal ENT inspection, hearing grossly normal, pharynx normal Neck: Supple, no JVD, trachea midline Respiratory/Chest: Lungs clear to auscultation, normal breath sounds, no respiratory distress Cardiovascular: Regular rate & rhythm, no gallop, no murmur Abdomen/GI: Normal bowel sounds, non-tender, soft Extremities/Musculoskeletal: +Left leg amputation. 2+pitting edema RLE. Normal inspection, no calf tenderness Neurological/Psych: Alert, normal mood/affect, oriented x 3 Skin: Normal color, warm/dry, no rash Assessment & Plan 57 y/o male with a history of CAD, CA s/p stents, HTN, HLD, spina bifida, neurogenic bladder, and a stage III pressure wound who presents s/p debridement and closure of stage III pressure wound at right ischium with Dr. Ruiz on for medical management. S/p debridement and closure of stage III pressure wound right ischium--POD #0 -Pain management, DVT prophylaxis, and PT/OT as per primary team -Resume Plavix when ok with primary team -No pain, AVSS CAD, HTN, HLD--stable -Continue ASA, Lipitor 80 mg PO qd -Hold lisinopril and Lasix for now until renal function checked/stable -Cover with hydralazine 10 mg IV q6h prn SBP >180 Neurogenic bladder--pt straight caths at home. Gonzalez catheter in place -Continue oxybutynin 10 mg PO qd Code Status -Level I, FULL RESUSCITATION STATUS Thank you for this consultation. We will continue to follow. Resident Physician Supervision Note: Pt evaluated independently. I discussed the case with the PA and agree with the findings and plan as documented in the note. Any exceptions or clarifications are listed here: 57 y/o M hx CAD, HTN, HLD, spina bifida, neurogenic bladder, chronic stage III pressure ulcer post debridement and closure - medical service is asked to see pt post-op due to multiple medical issues. Pt has recovered well post-op and has no specific complaints. OE AAO x 3 S1,2 R CTAB NT, ND Wound is bandaged post-op - did not undress LLE BKA P: CAD - cont ASA, Plavix, Lipitor Lisin and Lasix are held for AM and can likely be restarted Gonzalez cath in place due to neurogenic bladder - can remain for duration of admit He is prescribed Cefazolin Documented By: Pritesh Santiago
[2017-08-12] MEDS ORDERED: HydrALAZINE HCL 20 MG/ML VIAL IV. PRN (18:15)
[2017-08-12 18:29] LABS: HEMATOCRIT 41.1 % (42-52); HEMOGLOBIN 13.8 g/dL (14.0-18.0); MEAN CELL VOLUME 90.9 fL (80-100); MEAN CORPUSCULAR HEMOGLOBIN 30.5 pg (25-34); MEAN CORPUSCULAR HGB CONC 33.6 g/dl (32-36); MEAN PLATELET VOLUME 9.9 fL (7.4-10.4); PLATELET COUNT 279 K/uL (130-400); RED CELL DISTRIBUTION WIDTH CV 16.7 % (11.5-14.5); RED CELL DISTRIBUTION WIDTH SD 55.8 fL (36.4-46.3); WHITE BLOOD COUNT 9.23 K/uL (4.8-10.8)
[2017-08-12 18:48] LABS: CALCIUM 8.7 mg/dl (8.5-10.1); CREATININE 0.82 mg/dl (0.60-1.40); POTASSIUM 3.7 mmol/L (3.5-5.1)
[2017-08-12] MEDS: CEFAZOLIN IV 3,000 MG in SYRINGE 0 ML IV SCH (20:21)
[2017-08-12] MEDS: LACTATED RINGER'S 1000ML 1,000 ML IV SCH (22:44)
[2017-08-13] VITALS (9 sets, daily range): BP systolic 107–145; BP diastolic 62–72; PULSE 72–84; TEMP 36.8–37.2; O2SAT 92–95
[2017-08-13] MEDS: CEFAZOLIN IV 3,000 MG in SYRINGE 0 ML IV SCH (04:39)
[2017-08-13] MEDS: LACTATED RINGER'S 1000ML 1,000 ML IV SCH (05:15)
--- NOTE | 2017-08-13 08:19 | Progress Note ---
Progress Note Date of Service Aug 13, 2017. Progress Note POD #1 Doing well. Pain controlled afebrile VSS VAC intact, functioning no periwound erythema s/p closure right ischial wound continue bedrest for now will need SNF/rehab facility to address patient compliance issues/nutrition and wound care
[2017-08-13 08:22] LABS: BASO % 0.1 %; BASO ABS # 0.01 K/uL (0-0.2); EOS % 0.3 %; EOS ABS # 0.03 K/uL (0-0.5); HEMATOCRIT 40.7 % (42-52); HEMOGLOBIN 13.4 g/dL (14.0-18.0); IG# 0.02 K/uL (0.00-0.02); LYMPH % 11.6 %; LYMPH ABS # 1.16 K/uL (1.2-3.4); MEAN CELL VOLUME 91.1 fL (80-100); MEAN CORPUSCULAR HGB CONC 32.9 g/dl (32-36); MONO % 6.3 %; MONO ABS # 0.63 K/uL (0.11-0.59); NEUT % 81.5 %; NEUT ABS # 8.13 K/uL (1.4-6.5); PLATELET COUNT 276 K/uL (130-400); RED CELL DISTRIBUTION WIDTH CV 16.7 % (11.5-14.5); RED CELL DISTRIBUTION WIDTH SD 56.2 fL (36.4-46.3); WHITE BLOOD COUNT 9.98 K/uL (4.8-10.8)
[2017-08-13 08:33] LABS: PTT PATIENT 27.1 SECONDS (21.0-31.0)
[2017-08-13] MEDS: ASPIRIN 81 MG ECTAB PO SCH (08:36)
[2017-08-13] MEDS: MULTIVITAMIN TAB PO SCH (08:37)
[2017-08-13] MEDS: ATORVASTATIN 40 MG TAB PO SCH (08:37)
[2017-08-13] MEDS: OXYBUTYNIN CHLORIDE 5 MG TABCR PO SCH (08:37)
[2017-08-13] MEDS: ENOXAPARIN 40 MG/0.4 ML SYR SQ SCH (08:38)
[2017-08-13 08:41] LABS: ALBUMIN 2.8 gm/dl (3.4-5.0); CALCIUM 8.5 mg/dl (8.5-10.1); CREATININE 0.87 mg/dl (0.60-1.40); POTASSIUM 3.8 mmol/L (3.5-5.1)
[2017-08-13 08:44] LABS: TOTAL PROTEIN 6.7 gm/dl (6.4-8.2)
[2017-08-13] MEDS ORDERED: LISINOPRIL 5 MG TAB PO SCH (09:00)
--- NOTE | 2017-08-13 15:05 | Progress Note ---
Subjective Date of Service: Aug 13, 2017. Subjective Pt evaluation today including: conversation w/ patient, physical exam, lab review, review of inpatient medication list Pain: no pain PO Intake: adequate Voiding: no voiding problems patient is eating and drinking well, no pain no chest pain, no dyspnea reviewed labs, Cr stable and Hb stable Problem List Medical Problems: (1) Acute coronary syndrome Status: Acute Review of Systems All Other Systems: Reviewed and Negative Medications Current Inpatient Medications Medications (Trade) Dose Ordered Sig/Lindsay Route Start Time Stop Time Status Last Admin Dose Admin Acetaminophen (Tylenol Tab) 650 mg Q4H PRN PO 08/12/17 13:45 09/11/17 13:44 Morphine Sulfate (MoRPHine SULFATE INJ) 1 mg Q1H PRN IV 08/12/17 13:45 08/26/17 13:44 Oxycodone/ Acetaminophen (Percocet 5-325mg Tab) 1 tab Q4H PRN PO 08/12/17 13:45 08/26/17 13:44 Morphine Sulfate (MoRPHine SULFATE INJ) 2 mg Q1H PRN IV 08/12/17 13:45 08/26/17 13:44 Oxycodone/ Acetaminophen (Percocet 5-325mg Tab) 2 tab Q4H PRN PO 08/12/17 13:45 08/26/17 13:44 Morphine Sulfate (MoRPHine SULFATE INJ) 4 mg Q1H PRN IV 08/12/17 13:45 08/26/17 13:44 Multivitamins (Multivitamin Tab) 1 tab DAILY PO 08/13/17 09:00 09/12/17 08:59 08/13/17 08:37 1 TAB Diphenhydramine HCl (Benadryl Cap) 25 mg Q6H PRN PO 08/12/17 13:45 09/11/17 13:44 Diphenhydramine HCl (Benadryl Inj) 25 mg Q6H PRN IV 08/12/17 13:45 09/11/17 13:44 Oxazepam (Serax Cap) 10 mg HS PRN PO 08/12/17 13:45 09/11/17 13:44 Prochlorperazine Edisylate 5 mg/ Syringe 1 ml @ 5 mls/min Q6H PRN IV 08/12/17 13:45 09/11/17 13:44 08/13/17 04:26 5 MLS/MIN Enoxaparin Sodium (Lovenox Inj) 40 mg DAILY SQ 08/13/17 09:00 09/12/17 08:59 08/13/17 08:38 40 MG Aspirin (Ecotrin Tab) 81 mg QAM PO 08/13/17 09:00 09/12/17 08:59 08/13/17 08:36 81 MG Atorvastatin Calcium (Lipitor Tab) 80 mg QAM PO 08/13/17 09:00 09/12/17 08:59 08/13/17 08:37 80 MG Furosemide (Lasix Tab) 20 mg QAM PRN PO 08/12/17 13:45 09/11/17 13:44 Future hold Lisinopril (Zestril Tab) 5 mg QAM PO 08/13/17 09:00 09/12/17 08:59 Future hold Nitroglycerin (Nitrostat Tab) 0.4 mg PRN UT 08/12/17 13:45 09/11/17 13:44 Oxybutynin Chloride (Ditropan-Xl Tab) 10 mg QAM PO 08/13/17 09:00 09/12/17 08:59 08/13/17 08:37 10 MG Hydralazine HCl (HydrALAZINE INJ) 10 mg Q6H PRN IV. 08/12/17 18:15 09/11/17 18:14 Objective Vital Signs Date Time Temp Pulse Resp B/P (MAP) Pulse Ox O2 Delivery O2 Flow Rate FiO2 08/13/17 12:00 36.8 78 16 145/64 (91) 93 Room Air 08/13/17 07:39 36.9 84 16 112/70 (84) 92 Room Air 08/13/17 07:30 92 08/13/17 04:01 37.1 83 18 119/72 (88) 93 Room Air 08/13/17 00:35 94 Room Air 08/12/17 23:00 36.9 84 20 119/73 (88) 94 Room Air 08/12/17 19:01 36.7 74 18 131/87 (102) 95 Room Air 08/12/17 18:40 94 Nasal Cannula 2.0 08/12/17 18:32 Nasal Cannula 2.0 08/12/17 16:55 36.5 69 18 144/90 (108) 94 Room Air 08/12/17 16:25 36.5 76 18 145/81 (102) 98 Nasal Cannula 2.0 08/12/17 15:50 36.5 64 16 120/66 (84) 96 Nasal Cannula 2.0 08/12/17 15:10 62 16 118/54 100 Nasal Cannula 2 Physical Exam General Appearance: WD/WN, no apparent distress Eyes: normal inspection, EOMI, sclerae normal ENT: normal ENT inspection, hearing grossly normal, pharynx normal Neck: supple, no adenopathy, no JVD, trachea midline Respiratory/Chest: chest non-tender, lungs clear, normal breath sounds, no respiratory distress, no accessory muscle use Cardiovascular: regular rate, rhythm, no edema, no gallop, no JVD, no murmur Abdomen: normal bowel sounds, non tender, soft, no organomegaly Extremities: non-tender, no pedal edema, no calf tenderness, normal capillary refill, pelvis stable Neurologic/Psychiatric: medical laboratory technical officer II-XII nml as tested, alert, normal mood/affect, oriented x 3 Laboratory Results Last 24 Hours Test 08/12/17 18:17 08/13/17 07:40 White Blood Count 9.23 K/uL 9.98 K/uL Red Blood Count 4.52 M/uL 4.47 M/uL Hemoglobin 13.8 g/dL 13.4 g/dL Hematocrit 41.1 % 40.7 % Mean Corpuscular Volume 90.9 fL 91.1 fL Mean Corpuscular Hemoglobin 30.5 pg 30.0 pg Mean Corpuscular Hemoglobin Concent 33.6 g/dl 32.9 g/dl RDW Standard Deviation 55.8 fL 56.2 fL RDW Coefficient of Variation 16.7 % 16.7 % Platelet Count 279 K/uL 276 K/uL Mean Platelet Volume 9.9 fL 10.0 fL Sodium Level 140 mmol/L 138 mmol/L Potassium Level 3.7 mmol/L 3.8 mmol/L Chloride Level 106 mmol/L 106 mmol/L Carbon Dioxide Level 27 mmol/L 24 mmol/L Anion Gap 7.0 mmol/L 8.0 mmol/L Blood Urea Nitrogen 23 mg/dl 18 mg/dl Creatinine 0.82 mg/dl 0.87 mg/dl Est Creatinine Clear Calc Drug Dose 156.0 ml/min 147.0 ml/min Estimated GFR () 113.8 111.0 Estimated GFR (Non- 98.2 95.8 BUN/Creatinine Ratio 28.4 20.9 Random Glucose 101 mg/dl 156 mg/dl Calcium Level 8.7 mg/dl 8.5 mg/dl Neutrophils (%) (Auto) 81.5 % Lymphocytes (%) (Auto) 11.6 % Monocytes (%) (Auto) 6.3 % Eosinophils (%) (Auto) 0.3 % Basophils (%) (Auto) 0.1 % Neutrophils # (Auto) 8.13 K/uL Lymphocytes # (Auto) 1.16 K/uL Monocytes # (Auto) 0.63 K/uL Eosinophils # (Auto) 0.03 K/uL Basophils # (Auto) 0.01 K/uL Immature Granulocyte % (Auto) 0.2 % Immature Granulocyte # (Auto) 0.02 K/uL Prothrombin Time 10.3 SECONDS Prothromb Time International Ratio 1.0 Activated Partial Thromboplast Time 27.1 SECONDS Partial Thromboplastin Ratio 1.0 Total Bilirubin 0.3 mg/dl Aspartate Amino Transf (AST/SGOT) 11 U/L Alanine Aminotransferase (ALT/SGPT) 14 U/L Alkaline Phosphatase 81 U/L Total Protein 6.7 gm/dl Albumin 2.8 gm/dl Globulin 3.9 gm/dl Albumin/Globulin Ratio 0.7 Assessment and Plan 57 y/o male with a history of CAD, [place] s/p stents, HTN, HLD, spina bifida, neurogenic bladder, and a stage III pressure wound who presents s/p debridement and closure of stage III pressure wound at right ischium with Dr. Ruiz on for medical management. S/p debridement and closure of stage III pressure wound right ischium--POD #1 -Pain management, DVT prophylaxis, and PT/OT as per primary team: no pain -can resume Plavix once okay with surgery - AVSS, labs stable CAD, HTN, HLD--stable -Continue ASA, Lipitor 80 mg PO qd -resume Lisinopril and Lasix tomorrow -stop IV fluids since he is drinking well Neurogenic bladder--pt straight caths at home. Gonzalez catheter in place -Continue oxybutynin 10 mg PO qd Code Status -Level I, FULL RESUSCITATION STATUS will sign off at this time since vitals are stable, labs stable, patient has no complaints please call for any new issues
[2017-08-14 07:27] VITALS: BP 121/69; PULSE 75; TEMP 36.8; O2SAT 93
[2017-08-14 07:45] VITALS: O2SAT 93
[2017-08-14] MEDS: ATORVASTATIN 40 MG TAB PO SCH (08:21)
[2017-08-14] MEDS: ASPIRIN 81 MG ECTAB PO SCH (08:22)
[2017-08-14] MEDS: MULTIVITAMIN TAB PO SCH (08:22)
[2017-08-14] MEDS: OXYBUTYNIN CHLORIDE 5 MG TABCR PO SCH (08:22)
[2017-08-14] MEDS: ENOXAPARIN 40 MG/0.4 ML SYR SQ SCH (08:23)
--- NOTE | 2017-08-14 08:26 | Progress Note ---
Progress Note Date of Service Aug 14, 2017. Progress Note POD#2 s/p closure of right ischial pressure ulcer Doing well, complains of discomfort and difficulty repositioning in bed. States he will be denied for [facility] and will refuse SNF transfer. Wants to go home with home health. Provena stopped working overnight, patient turned it off and did not notify staff until am afebrile VSS Provena on right buttock, not functioning upon removal, incision right buttock intact new ulceration noted on right buttock, stage II, pink with serous drainage 3x1 cm Discussed with patient and wound care center that I [facility]. We will get [place] to see if he qualifies. Compliance at home has been an issue in the past. If does not qualify, will discharge home with home care and wound center follow up. Dress new ulceration with aquacel ag and optifoam, optifoam to incision
[2017-08-14] MEDS ORDERED: CLOPIDOGREL BISULFATE 75 MG TAB PO SCH (09:00)
[2017-08-14] MEDS ORDERED: DOXYCYCLINE HYCLATE 100 MG CAP PO SCH (09:00)
[2017-08-14 16:16] VITALS: BP 121/69; PULSE 75; TEMP 36.8; O2SAT 93
--- NOTE | 2017-08-14 16:22 | Discharge Instructions ---
Discharge Instructions Date of Service Aug 14, 2017. Admission Reason for Admission: Right Ischial Pressure Sore, Stage 3, Discharge Discharge Diagnosis / Problem: Stage 3 right ischial ulcer Discharge Goals Goal(s): Decrease discomfort, Improve function, Increase independence Activity Recommendations Activity Limitations: per Instructions/Follow-up section Lifting Limitations: none Exercise/Sports Limitations: until after follow-up appointment Shower/Bathe: keep incision dry must be on bedrest with specialty mattress with right buttock/hip offloaded. OK to walk with crutches; may not SIT on buttocks . Current Hospital Diet Patient's current hospital diet: Regular Diet Discharge Diet Recommended Diet: Diabetes Type 2 Diet (high protein) Procedures Procedures Performed: Debridement and Closure of Stage 3 Pressure Wound Right Ischium Pending Studies Studies pending at discharge: no Laboratory Results Test 08/04/17 00:00 08/04/17 10:55 08/12/17 18:17 08/13/17 07:40 Urine Cotinine <2 Urine Nicotine Level <2 Immature Granulocyte % (Auto) 0.2 0.2 White Blood Count 9.96 9.23 9.98 Red Blood Count 4.65 4.52 4.47 Hemoglobin 13.9 13.8 13.4 Hematocrit 42.3 41.1 40.7 Mean Corpuscular Volume 91.0 90.9 91.1 Mean Corpuscular Hemoglobin 29.9 30.5 30.0 Mean Corpuscular Hemoglobin Concent 32.9 33.6 32.9 Platelet Count 394 279 276 Mean Platelet Volume 10.0 9.9 10.0 Neutrophils (%) (Auto) 72.9 81.5 Lymphocytes (%) (Auto) 15.6 11.6 Monocytes (%) (Auto) 9.3 6.3 Eosinophils (%) (Auto) 1.5 0.3 Basophils (%) (Auto) 0.5 0.1 Neutrophils # (Auto) 7.26 8.13 Lymphocytes # (Auto) 1.55 1.16 Monocytes # (Auto) 0.93 0.63 Eosinophils # (Auto) 0.15 0.03 Basophils # (Auto) 0.05 0.01 Immature Granulocyte # (Auto) 0.02 0.02 Prothrombin Time 10.6 10.3 Prothrombin Time INR 1.0 1.0 PTT 25.9 27.1 Partial Thromboplastin Ratio 1.0 1.0 RDW Standard Deviation 55.8 56.2 RDW Coefficient of Variation 16.7 16.7 Sodium Level 140 138 Potassium Level 3.7 3.8 Chloride Level 106 106 Carbon Dioxide Level 27 24 Anion Gap 7.0 8.0 Blood Urea Nitrogen 23 18 Creatinine 0.82 0.87 Est Creatinine Clear Calc Drug Dose 156.0 147.0 Estimated GFR () 113.8 111.0 Estimated GFR (Non- 98.2 95.8 BUN/Creatinine Ratio 28.4 20.9 Random Glucose 101 156 Calcium Level 8.7 8.5 Total Bilirubin 0.3 Aspartate Amino Transferase (AST) 11 Alanine Aminotransferase (ALT) 14 Alkaline Phosphatase 81 Total Protein 6.7 Albumin 2.8 Globulin 3.9 Albumin/Globulin Ratio 0.7 Medical Emergencies . Who to Call and When: Medical Emergencies: If at any time you feel your situation is an emergency, please call 911 immediately. . Non-Emergent Contact Non-Emergency issues call your: Primary Care Provider Call Non-Emergent contact if: you have a fever . "Provider Documentation" section prepared by Neeta Ruiz. . VTE Core Measure Inpt VTE Proph given/why not?: Enoxaparin (Lovenox)SQ, SCD's
--- NOTE | 2017-08-17 15:22 | Discharge Summary ---
Discharge Summary Date of Service Aug 17, 2017. Admission Date/Reason Aug 12, 2017 at 13:48 Right Ischial Pressure Sore, Stage 3,. Discharge Date/Disposition Aug 14, 2017 Home Diagnosis Principal Diagnosis: Stage 3 pressure wound right ischium Secondary Diagnoses/Problems: CAD history of CT HTN HLD spina bifida neurogenic bladder Procedure(s) Performed debridement an closure of stage 3 pressure wound right ischium Consultations Medicine Nutrition PT/OT Medication Reconciliation Continued Medications: Aspirin (Aspirin Ec) 81 Mg Tab 81 MG PO QAM Atorvastatin (Lipitor) 80 Mg Tab 80 MG PO QAM, TAB Clopidogrel Bisulfate (Plavix) 75 Mg Tab 75 MG PO QAM, TAB STOPPED ON 08/03/17 FOR PROCEDURE PER CONVERSATION WITH DR CELESTE AND JOSIE JOHNSON PER PT REPORT Doxycycline Monohydrate (Monodox) 100 Mg Cap 100 MG PO BID, #60 CAP Furosemide (Lasix) 20 Mg Tab 20 MG PO QAM PRN for SWELLING, TAB Lisinopril (Prinivil) 5 Mg Tab 5 MG PO QAM, TAB Multivitamins/Minerals (Mvi With Minerals) Tab 1 TAB PO QAM, TAB Nitroglycerin (Nitrostat) 0.4 Mg Tab 0.4 MG UT PRN, BTL Oxybutynin Chloride Er (Ditropan Xl) 10 Mg Tab 10 MG PO QAM, TAB Admission Physical Exam As per Admitting History & Physical. Hospital Course Patient presented to the OR with history of a stage 3 pressure wound on his right ischium. he underwent debridement and closure of the ulcer. Ther was no evidence of exposed bone during the procedure. Preevena vac was placed after incision was closed. On POD #1, the vac was intact and functioning over the patient's wound. He was compliant with bedrest. Consult was placed for nutrition , PT/OT and patient was referred to SNF to help with post-operative compliance and nutrition. The patient was unable to perform his PT due to not having prosthetic leg. He then turned off his wound vac during the night. On POD# 2, the patient was seen and vac removed. He had evidence of a new ulceration that measured 3x1 cm. He refused transfer to SNF. Patient was discharged home with Optifoam dressing over incision and Aquacel ag and Optifoam dressing over new ulceration. He was instructed to follow-up with wound care. Discharge Instructions Please refer to the electronic Patient Visit Report (Discharge Instructions) for additional information.
== END 2017-08-14 19:45 | disposition home health service (06) | DRG 570 ==
LOC: C.ACU 09:49 → C.MSW 13:48 → ENRESERV 15:18
PROVIDERS: ADMIT Plastic Surgery; ATTEND Plastic Surgery
PROC: 0JB90ZZ Excision of Buttock Subcutaneous Tissue and Fascia, Open Approach (ICD-10-PCS; principal; 2017-08-12 12:00)
DX: L89.213 Pressure ulcer of right hip, stage 3 (principal); Z68.41 Body mass index [BMI] 40.0-44.9, adult; I25.10 Atherosclerotic heart disease of native coronary artery without angina pectoris; F17.200 Nicotine dependence, unspecified, uncomplicated; E78.5 Hyperlipidemia, unspecified; I10 Essential (primary) hypertension; N31.9 Neuromuscular dysfunction of bladder, unspecified; Z99.3 Dependence on wheelchair; Q05.9 Spina bifida, unspecified; Z79.82 Long term (current) use of aspirin; E66.01 Morbid (severe) obesity due to excess calories; Z89.512 Acquired absence of left leg below knee; Z83.3 Family history of diabetes mellitus

== ENCOUNTER 2019-09-04 14:11 | Observation (INO) ==
[2019-09-04] MEDS ORDERED: DEXAMETHASONE **PF** INJ 10 MG/ML VIAL IV STA (14:27)
[2019-09-04] MEDS ORDERED: DiphenhydrAMINE HCL 50 MG/ML VIAL IV STA (14:27)
[2019-09-04] MEDS ORDERED: methylPREDNISolone 125 MG/2 ML VIAL IV STA (14:27)
[2019-09-04] MEDS ORDERED: SODIUM CHLORIDE 0.9% 250 ML IV PRN ×2 (14:27→14:31)
[2019-09-04] MEDS ORDERED: FAMOTIDINE 20MG IV PUSH 20 MG/5 ML SYR IV STA (14:29)
--- NOTE | 2019-09-04 15:09 | Anesthesiology Consultation ---
Date of Service September 04, 2019 Assessment & Plan Chart Review Chart Review: Pending: Refer to Additional Notes / Consult section and senior accounting manager initiated ER MD currently treating pt for allergic rxn. Anes on standby for AW compromise. Pt currently stable. If respiratory status starts to decline, will need to be immediately notified and taken to OR for awake FOB intubation. Pt awake. Counselled about awake intubation. Pt/Family's questions answered. OR team awake and room setup in event of compromise. Will await call from ER MD if anes services required. D/w ED MD Consults Requested none ASA ASA3 Proposed Anesthesia Anesthesia Type: General and Other (awake FOB possible) Risk / Benefits Reviewed With: PT / POA / Parent / Guardian, Accepts Plan and Informed Consent Obtained History Height/Weight Height: 6 ft Weight: 165.6 kg Allergies Allergy/AdvReac Type Severity Reaction Status Date / Time No Known Allergies Allergy Unknown Verified 07/22/19 15:06 Medications Home Medications Medication Instructions Recorded Confirmed Last Taken aspirin 81 mg tablet,delayed 81 mg PO DAILY 03/29/18 07/22/19 Unknown release clopidogrel 75 mg tablet 75 mg PO DAILY 03/29/18 07/22/19 Unknown lisinopril 5 mg tablet 5 mg PO DAILY 03/29/18 07/22/19 Unknown multivitamin 1 cap PO DAILY 03/29/18 07/22/19 Unknown nitroglycerin 0.4 mg sublingual 0.4 mg SL Q5M PRN 03/29/18 07/22/19 Unknown tablet atorvastatin 80 mg tablet 80 mg PO .COMPLEX 02/16/19 07/22/19 Unknown gabapentin 100 mg capsule 100 mg PO TID #90 cap 02/16/19 07/22/19 Unknown oxybutynin chloride 15 mg 15 mg PO DAILY #90 tab 03/21/19 07/22/19 Unknown tablet,extended release 24 hr furosemide 20 mg tablet 20 mg PO .COMPLEX PRN tab 07/22/19 07/22/19 Unknown sulfamethoxazole 800 1 tab PO BID 5 Days #10 tab 08/17/19 Unknown mg-trimethoprim 160 mg tablet NPO Date Last Intake of Fluids: 09/04/19 Time Last Intake of Fluids: 08:30 Date Last Intake of Solids: 09/04/19 Time Last Intake of Solids: 08:30 Past Medical History Medical History (Updated 09/04/19 @ 15:16 by Susan Mitchell DO) ACS (acute coronary syndrome) (Resolved) Anemia (Chronic) CAD (coronary artery disease) (Chronic) Dyslipidemia (Chronic) Elevated hemoglobin A1c Epididymitis (Resolved) Folate deficiency (Chronic) Gross hematuria (Acute) HTN (hypertension) (Chronic) Ischemic cardiomyopathy (Chronic) Morbid obesity Neurogenic bladder (Chronic) Neuropathic pain of lower extremity (Chronic) S/p left hip fracture Spina bifida (Chronic) Spina bifida of lumbar region (Acute) STEMI (ST elevation myocardial infarction) (Resolved) Vitamin D deficiency (Chronic) Exercise / Class Metabolic Activity III < 4 Walking/Shop/Light housework Past Surgical History Surgical History (Updated 09/04/19 @ 15:16 by Susan Mitchell DO) H/O colonoscopy H/O heart artery stent S/P AKA (above knee amputation) (Chronic) left, secondary to infection S/P arterial stent (Resolved) S/P cystoscopy S/P hip replacement (Resolved) Status post skin graft Past Anesthesia History No Hx of Anesthesia Complications and No Family Hx of Anesthesia Complications History of PONV No Hx of PONV and No Hx of Motion Sickness Social History Smoking Status: Former smoker Hx Alcohol Use: Yes Alcohol type: beer Hx Substance Use: No Review of Systems +tongue swelling/drooling. Pt able to speak and no SOB noted (nor per pt) Physical Exam Vital Signs Last Vital Signs Temp 37 C 09/04/19 14:25 Pulse 92 H 09/04/19 14:25 Resp 20 09/04/19 14:25 BP 119/77 09/04/19 14:25 Pulse Ox 96 09/04/19 14:25 ENMT Mouth: + dentition abnormality (fair dentition, with some missing); no TMJ abnormality Thyromental Distance: > or= 3.5 Finger Breadths Mallampati Class: IV severe tongue edema with drooling present. pt is able to speak and reports he does not feel SOB. Neck normal visual inspection, trachea midline, + short neck and + thick neck; neck extension not limited Respiratory normal respiratory effort; no respiratory distress, does not use accessory muscles and no audible wheezes Auscultation: lungs clear to auscultation bilaterally; no rales, no rhonchi and no wheezes Cardiovascular Rate/Rhythm: regular rate and regular rhythm Heart Sounds: no murmur Musculoskeletal Spine: normal cervical ROM Extremities: full ROM of extremities Neurologic moves all extremities Psychiatric Orientation: alert and oriented x 3
[2019-09-04 15:11] LABS: Basophils # (auto) 0.02 K/uL (0-0.2); Basophils % (auto) 0.1 %; Eosinophils # (auto) 0.26 K/uL (0-0.5); Eosinophils % (auto) 1.9 %; Hemoglobin 13.9 g/dL (14.0-18.0); Immature Granulocytes # (auto) 0.04 K/uL (0.00-0.02); Immature Granulocytes % (auto) 0.3 %; Lymphocytes # (auto) 3.06 K/uL (1.2-3.4); Lymphocytes % (auto) 22.7 %; Mean Corpuscular Hgb Conc 33.1 g/dL (32-36); Mean Corpuscular Volume 87.5 fL (80-100); Mean Platelet Volume 9.9 fL (7.4-10.4); Monocytes # (auto) 1.47 K/uL (0.11-0.59); Monocytes % (auto) 10.9 %; Neutrophils # (auto) 8.61 K/uL (1.4-6.5); Neutrophils % (auto) 64.1 %; Platelet Count 482 K/uL (130-400); RDW Coefficient of Variation 15.4 % (11.5-14.5); RDW Standard Deviation 49.5 fL (36.4-46.3); White Blood Count 13.46 K/uL (4.8-10.8)
[2019-09-04 15:30] LABS: BUN Creatinine Ratio 19.5 (10-20); Calcium 9.1 mg/dl (8.5-10.1); Creatinine Clr Calc Pharmacy 132.2 ml/min; Est GFR (African American) 99.9; Est GFR (Non-African American) 86.2; Potassium 3.5 mmol/L (3.5-5.1)
[2019-09-04 15:33] LABS: Albumin Globulin Ratio 0.6 (0.9-2); Bilirubin,Total 0.4 mg/dl (0.2-1); Globulin 5.2 gm/dl (2.5-4.0); Total Protein 8.2 gm/dl (6.4-8.2)
--- NOTE | 2019-09-04 17:44 | Emergency Department Note ---
Entered by Zunilda Dunne acting as a scribe for History of Present Illness General Chief complaint: Allergic Reaction Stated complaint: allergic reaction/ tongue swelling Time Seen by Provider: 09/04/19 14:16 Source: patient Mode of arrival: wheelchair Limitations: no limitations History of Present Illness Onset (ago): hour(s) 1 Location: mouth (tongue) Radiation: non-radiation Pain Consistency: + constant Relieved By: + none Exacerbated By: + none Associated symptoms: no shortness of breath Treatments prior to arrival: none The patient is a 59 year old white male w/ PMHx of CAD, HTN, STEMI, spina bifida, PAD and sepsis who presents to the ED w/ CC of a possible allergic reaction that started just prior to arrival. He states his tongue started swelling and he does not know what caused it. He denies any recent changes in medications or eating anything unusual recently. He is still able to breathe without difficulty. The patient did receive Epi, Benadryl and Solu-Medrol prior to arrival. Home Medications Home Medications Medication Instructions Recorded Confirmed Type aspirin 81 mg tablet,delayed 81 mg PO DAILY 03/29/18 09/04/19 History release clopidogrel 75 mg tablet 75 mg PO .ON HOLD 03/29/18 09/04/19 History lisinopril 5 mg tablet 5 mg PO DAILY 03/29/18 09/04/19 History multivitamin 1 cap PO DAILY 03/29/18 09/04/19 History nitroglycerin 0.4 mg sublingual 0.4 mg SL Q5M PRN 03/29/18 09/04/19 History tablet atorvastatin 80 mg tablet 80 mg PO HS 02/16/19 09/04/19 History oxybutynin chloride 15 mg 15 mg PO DAILY #90 tab 03/21/19 09/04/19 Rx tablet,extended release 24 hr furosemide 20 mg tablet 40 mg PO DAILY tab 07/22/19 09/04/19 History acetaminophen [Tylenol Extra 1,000 mg PO Q6H PRN 09/04/19 09/04/19 History Strength] Allergies Allergy/AdvReac Type Severity Reaction Status Date / Time No Known Allergies Allergy Unknown Verified 07/22/19 15:06 Past Med/Surg History Medical History (Updated 09/04/19 @ 17:29 by Zunilda Dunne) ACS (acute coronary syndrome) (Resolved) Anemia (Chronic) CAD (coronary artery disease) (Chronic) Dyslipidemia (Chronic) Elevated hemoglobin A1c Epididymitis (Resolved) Folate deficiency (Chronic) Gross hematuria (Acute) HTN (hypertension) (Chronic) Ischemic cardiomyopathy (Chronic) Morbid obesity Neurogenic bladder (Chronic) Neuropathic pain of lower extremity (Chronic) S/p left hip fracture Spina bifida (Chronic) Spina bifida of lumbar region (Acute) STEMI (ST elevation myocardial infarction) (Resolved) Vitamin D deficiency (Chronic) Surgical History (Updated 09/04/19 @ 15:16 by Susan Mitchell DO) H/O colonoscopy H/O heart artery stent S/P AKA (above knee amputation) (Chronic) left, secondary to infection S/P arterial stent (Resolved) S/P cystoscopy S/P hip replacement (Resolved) Status post skin graft Social History Communication Ability: Effective Visual Impairment: Limited Hearing Ability: Normal Beliefs That Will Affect Care: None marital status: Current Living Situation: Alone Feels Safe at Home: Yes Smoking Status: Former smoker Hx Alcohol Use: Yes Alcohol type: beer Alcohol Intake Frequency: Weekly Hx Substance Use: No Review of Systems See HPI for pertinent positives & negatives. and A total of 10 systems reviewed and were otherwise negative Physical Exam Vital Signs Vital Signs - 24 hr 09/04/19 14:25 09/04/19 15:00 09/04/19 15:20 Temperature 37 C 37 C Temperature Source Oral Oral Pulse Rate 92 H 93 H Pulse Rate [Finger] 92 H Respiratory Rate 20 20 18 Respiratory Depth Normal Blood Pressure 119/77 107/83 Blood Pressure [Right Arm] 122/80 Blood Pressure Mean 91 91 Blood Pressure Mean [Right Arm] 94 Pulse Oximetry 96 96 97 Oxygen Delivery Method Room Air Room Air Sepsis Recent Fever Within 48 Hours Yes Sepsis New/Unexplained Change in Mental Status No Sepsis Action Taken by Nursing No Action Required 09/04/19 15:24 09/04/19 15:32 09/04/19 15:38 Temperature 37.1 C 37.0 C 37 C Temperature Source Oral Oral Oral Pulse Rate 94 H 94 H 93 H Pulse Rate [Finger] Respiratory Rate 20 24 18 Respiratory Depth Blood Pressure 132/68 122/80 122/80 Blood Pressure [Right Arm] Blood Pressure Mean 89 94 94 Blood Pressure Mean [Right Arm] Pulse Oximetry 96 97 97 Oxygen Delivery Method Sepsis Recent Fever Within 48 Hours Sepsis New/Unexplained Change in Mental Status Sepsis Action Taken by Nursing 09/04/19 15:41 09/04/19 15:43 09/04/19 16:11 Temperature 37 C 37 C Temperature Source Oral Oral Pulse Rate 92 H Pulse Rate [Finger] 96 H 88 Respiratory Rate 20 20 20 Respiratory Depth Blood Pressure 143/77 H Blood Pressure [Right Arm] 143/77 H 120/78 Blood Pressure Mean 99 Blood Pressure Mean [Right Arm] 99 92 Pulse Oximetry 97 96 96 Oxygen Delivery Method Room Air Sepsis Recent Fever Within 48 Hours Sepsis New/Unexplained Change in Mental Status Sepsis Action Taken by Nursing 09/04/19 17:00 Temperature Temperature Source Pulse Rate Pulse Rate [Finger] 86 Respiratory Rate 20 Respiratory Depth Blood Pressure Blood Pressure [Right Arm] 151/84 H Blood Pressure Mean Blood Pressure Mean [Right Arm] 106 Pulse Oximetry 96 Oxygen Delivery Method Sepsis Recent Fever Within 48 Hours Sepsis New/Unexplained Change in Mental Status Sepsis Action Taken by Nursing GENERAL: Patient is well nourished, in mild distress, non-toxic. EYE EXAM: Normal conjunctiva. PERRL, no anisocoria and EOM's grossly intact w/o pain. OROPHARYNX: Occasional drooling, cannot visualize the posterior pharynx, enlarged tongue. NECK: Supple, no nuchal rigidity, no adenopathy, non-tender. No signs of meningismus. Non-stridulous. LUNGS: Clear to auscultation. Normal chest wall mechanics. HEART: NSR, no MRG. ABDOMEN: Abdomen soft, non-tender, normo-active bowel sounds, no masses, no rebound or guarding. UPPER EXTREMITIES: Upper extremities are grossly normal. LOWER EXTREMITIES: No pitting edema in right leg. No calf pain in right leg. LLE amputation. RLE w/ wounds over foot and wound sock in place. NEURO EXAM: A&O x3, cranial nerves II-XII grossly intact, normal speech. Course Course 1422: The patient was evaluated in room B9 and a complete history and physical were performed. 1435: I discussed the patients case with Dr. Mitchell, Anesthesiology. The patient will be further evaluated. 1500: Dr. Mitchell is in the room evaluating the patient. 1525: Dr. Mitchell states the patient looks well. If they were to do something, it would be in the OR. If he does stay, he probably needs to go to the ICU. 1535: I reevaluated the patient. He is having clinical improvement and is actively receiving FFP. 1655: I reevaluated the patient. He is now clinically improving but is not drinking yet. 1725: I reevaluated the patient. He is resting comfortably. I discussed his results and my recommendation she remain in the hospital for further evaluation and management and he is agreeable with the plan. 1810: I discussed the patients case with Dr. Burroughs, [facility] Hospitalist. The patient will be further evaluated. Administered Medications Discontinued Medications Diphenhydramine HCl (Benadryl) 50 mg IV NOW STA Stop: 09/04/19 14:28 Last Admin: 09/04/19 14:47 Dose: Not Given Documented by: [id number] Famotidine (Pepcid 20mg Iv Push) 20 mg in 5 mls @ 2.5 mls/min IV NOW STA Stop: 09/04/19 14:30 Last Admin: 09/04/19 15:00 Dose: 2.5 mls/min Documented by: [id number] Methylprednisolone (Solumedrol) 125 mg IV NOW STA Stop: 09/04/19 14:28 Last Admin: 09/04/19 14:47 Dose: Not Given Documented by: [id number] Critical Care Time Critical Care Time: Yes Total Critical Care Time: 75 I have personally spent 75 minutes of critical care time in direct management of this patient. This includes bedside care, interpretation of diagnostic studies, and testing, discussion with consultants, patient, and family members, and other require inpatient management activities. This 75 minutes is in excess of all separately billable procedures. Medical Decision Making Differential Diagnosis The differential diagnoses considered include medication side effect, hereditary angioedema, allergic reaction, mass and vitamin deficiency. Medical Records Attestation: I reviewed the patient's medical records. Home Medications Current Medication List: was personally reviewed by me Laboratory Data Attestation: I reviewed the patient's lab results. Result diagrams: 09/04/19 14:46 09/04/19 14:46 Lab Results 09/04/19 09/04/19 09/04/19 Range/Units 14:46 14:46 14:46 WBC 13.46 H (4.8-10.8) K/uL RBC 4.80 (4.7-6.1) M/uL Hgb 13.9 L (14.0-18.0) g/dL Hct 42.0 (42-52) % MCV 87.5 (80-100) fL MCH 29.0 (25-34) pg MCHC 33.1 (32-36) g/dL RDW Std Deviation 49.5 H (36.4-46.3) fL RDW Coeff of Micaela 15.4 H (11.5-14.5) % Plt Count 482 H (130-400) K/uL MPV 9.9 (7.4-10.4) fL Immature Gran % (Auto) 0.3 % Neut % (Auto) 64.1 % Lymph % (Auto) 22.7 % [place] % (Auto) 10.9 % Eos % (Auto) 1.9 % Baso % (Auto) 0.1 % Immature Gran # (Auto) 0.04 H (0.00-0.02) K/uL Neut # (Auto) 8.61 H (1.4-6.5) K/uL Lymph # (Auto) 3.06 (1.2-3.4) K/uL [place] # (Auto) 1.47 H (0.11-0.59) K/uL Eos # (Auto) 0.26 (0-0.5) K/uL Baso # (Auto) 0.02 (0-0.2) K/uL Sodium 137 (136-145) mmol/L Potassium 3.5 (3.5-5.1) mmol/L Chloride 102 (98-107) mmol/L Carbon Dioxide 25 (21-32) mmol/L Anion Gap 10.0 (3-11) BUN 19 H (7-18) mg/dl Creatinine 0.96 (0.6-1.4) mg/dl Est Cr Clr Drug Dosing 132.2 ml/min Est GFR ( Amer) 99.9 Est GFR (Non-Af Amer) 86.2 BUN/Creatinine Ratio 19.5 (10-20) Glucose 134 H (70-99) mg/dl Calcium 9.1 (8.5-10.1) mg/dl Total Bilirubin 0.4 (0.2-1) mg/dl AST 17 (15-37) U/L ALT 30 (12-78) U/L Alkaline Phosphatase 92 (45-117) U/L Total Protein 8.2 (6.4-8.2) gm/dl Albumin 3.0 L (3.4-5.0) gm/dl Globulin 5.2 H (2.5-4.0) gm/dl Albumin/Globulin Ratio 0.6 L (0.9-2) Blood Type A Positive Antibody Screen NEGATIVE Blood Pressure Blood Pressure Findings: Elevated blood pressure Blood Pressure Disposition: further management by hospitalist MDM Narrative The patient is a 59 year old white male w/ PMHx of CAD, HTN, STEMI, spina bifida, PAD and sepsis who presents to the ED w/ CC of a possible allergic reaction that started just prior to arrival. Patient was seen and evaluated the bedside. The patient was in mild distress and there was concern for the patient's respiratory status as he was drooling. Non-stridulous but does have a significantly enlarged tongue and was unable to visualize posterior pharynx. Given the patient's ASA class Mallampati score of 4, I did call the on-call anesthesiologist who kindly came to see the patient. Patient in the meantime had already received epinephrine, Solu-Medrol, and Benadryl prior to arrival. I did order FFP and the patient was consented for the treatments. I did reassess the patient numerous times throughout his stay. As the patient has had significant improvement but it has not resolved patient is on lisinopril given the patient's body habitus and concern for airway compromise I believe the patient would benefit from further observation. I did speak the on-call hospitalist. The patient was to be admitted to the ICU for airway precautions. Patient has already been consented for awake intubation by anesthesia per Dr. Mitchell. Impression & Plan Angioedema, Medication side effect Discharge Plan Visit Data Chief Complaint: Allergic Reaction Stated Complaint: allergic reaction/ tongue swelling ED Provider: Rc Elliott Discharge Problem: Angioedema, Medication side effect Patient Disposition: Being Evaluated by Hospitalist Forms Stand Alone Forms: My [facility] Prescriptions Prescriptions: No Action aspirin 81 mg tablet,delayed release (DR/EC) 81 mg PO DAILY RF: 0 clopidogrel 75 mg tablet 75 mg PO .ON HOLD RF: 0 lisinopril 5 mg tablet 5 mg PO DAILY RF: 0 multivitamin capsule 1 cap PO DAILY RF: 0 nitroglycerin 0.4 mg tablet, sublingual 0.4 mg SL Q5M PRN (Reason: Chest Pain) RF: 0 atorvastatin 80 mg tablet 80 mg PO HS RF: 0 furosemide 20 mg tablet 40 mg PO DAILY RF: 0 oxybutynin chloride 15 mg tablet extended release 24hr 15 mg PO DAILY Qty: 90 RF: 3 acetaminophen [Tylenol Extra Strength] 500 mg Tablet 1,000 mg PO Q6H PRN (Reason: Pain) RF: 0 Referrals Referrals: Paige Fair MD [Primary Care Provider] - The scribe's documentation has been prepared under my direction and personally reviewed by me in its entirety. I confirm that the note above accurately reflects all work, treatment, procedures, and medical decision making performed by me.
[2019-09-04] MEDS ORDERED: ICU PROTOCOL FOR HYPERGLYCEMIA PRN ×2 (19:38→20:57)
[2019-09-04] MEDS ORDERED: SODIUM CHLORIDE 0.9% 1000ML 1,000 ML IV SCH (19:45)
--- NOTE | 2019-09-04 20:26 | History & Physical Report ---
Date of Service September 04, 2019 Assessment & Plan (1) Angioedema: -Most likely Acei induced, elevated Bradykinin -Anesthesia was consulted and recommendations were for ICU observation of airway and if needing intubation would recommend it be done in OR. -Appears resolving s/p Solu-medrol, Decadron and Benadryl -Monitor symptoms in ICU, doesn't appear intubation will be necessary -Discontinue Lisinopril Code: Full DVT ppx: Lovenox 40mg SQ q24h FENGI: NPO, pepcid since high dose steroids Dispo: Observation, ICU for monitoring of airway (2) Medication side effect: as above (3) Morbid obesity: BMI 49.5 (4) H/O heart artery stent: continue with Atorvastatin 80mg PO HS ASA 81mg PO daily Clopidogrel 75mg PO Nitro SL for chest pain (5) PAD (peripheral artery disease): continue with Atorvastatin 80mg PO HS ASA 81mg PO daily Clopidogrel 75mg PO Notes supposed to have PVD surgery on right foot (6) Pressure ulcer of toe of right foot, stage 2: wound care consult (7) Elevated hemoglobin A1c: Insulin SS per ICU protocol ordered (8) Pressure ulcer of ischium, stage 3: Wound care consult (9) Pressure ulcer of left ischium, stage 2: Wound care consult (10) Spina bifida of lumbar region: noted in history (11) Neuropathic pain of lower extremity: stable (12) Hypertension: continue with Lasix 40mg PO daily D/C Lisinopril Currently hemodynamically stable (13) Dyslipidemia: statin as above History of Present Illness Chief Complaint: Angioedema Primary Care Provider: Paige Fair MD Mr. Tom Whitney is a 59 y/o male with past medical hx of HTN, HLD, ischemic cardiomyopathy (40-45% January 2013, resolved September 2015), CAD (ALMI mLAD URIAH January 2013, AMI pLAD URIAH September 2015), neurogenic bladder, spina bifida, pressure ulcers, morbid obesity who presented to [facility] with Angioedema. He notes eating his usual breakfast this morning of eggs and toast. He took his usual medications, including Lisinopril which he's been on since 2011. He started to have swelling of his tongue. Denies any trouble breathing, chest pains, ingestion of any other new foods, using any new household products, and has never had this before. His daughter finally directed him to the ED for evaluation. Here in ED he notes feeling improved status post treatment with Decadron, Solu-medrol, Benadryl 50mg IV. He denied any eye-lid swelling. Anesthesia was consulted and recommendations were for ICU observation of airway and if needing intubation would recommend it be done in OR. Allergies Allergy/AdvReac Type Severity Reaction Status Date / Time No Known Allergies Allergy Unknown Verified 07/22/19 15:06 Home Medications Home Medications Medication Instructions Recorded Confirmed Type aspirin 81 mg tablet,delayed 81 mg PO DAILY 03/29/18 09/04/19 History release clopidogrel 75 mg tablet 75 mg PO .ON HOLD 03/29/18 09/04/19 History lisinopril 5 mg tablet 5 mg PO DAILY 03/29/18 09/04/19 History multivitamin 1 cap PO DAILY 03/29/18 09/04/19 History nitroglycerin 0.4 mg sublingual 0.4 mg SL Q5M PRN 03/29/18 09/04/19 History tablet atorvastatin 80 mg tablet 80 mg PO HS 02/16/19 09/04/19 History oxybutynin chloride 15 mg 15 mg PO DAILY #90 tab 03/21/19 09/04/19 Rx tablet,extended release 24 hr furosemide 20 mg tablet 40 mg PO DAILY tab 07/22/19 09/04/19 History acetaminophen [Tylenol Extra 1,000 mg PO Q6H PRN 09/04/19 09/04/19 History Strength] Past Med/Surg History Medical History (Updated 09/04/19 @ 17:29 by Zunilda Dunne) ACS (acute coronary syndrome) (Resolved) Anemia (Chronic) CAD (coronary artery disease) (Chronic) Dyslipidemia (Chronic) Elevated hemoglobin A1c Epididymitis (Resolved) Folate deficiency (Chronic) Gross hematuria (Acute) HTN (hypertension) (Chronic) Ischemic cardiomyopathy (Chronic) Morbid obesity Neurogenic bladder (Chronic) Neuropathic pain of lower extremity (Chronic) S/p left hip fracture Spina bifida (Chronic) Spina bifida of lumbar region (Acute) STEMI (ST elevation myocardial infarction) (Resolved) Vitamin D deficiency (Chronic) Surgical History (Updated 09/04/19 @ 15:16 by Susan Mitchell DO) H/O colonoscopy H/O heart artery stent S/P AKA (above knee amputation) (Chronic) left, secondary to infection S/P arterial stent (Resolved) S/P cystoscopy S/P hip replacement (Resolved) Status post skin graft Social History Preferred Language: Croatian Communication Ability: Effective Visual Impairment: Limited Hearing Ability: Normal Beliefs That Will Affect Care: None marital status: Current Living Situation: Alone Feels Safe at Home: Yes Safety Concerns: Feels Safe At This Time Smoking Status: Former smoker Tobacco Type: cigarettes ; Smoking End Date: 08/31/2019 ; Second Hand Exposure: No ; Tobacco Cessation Education Requested by Patient: No Hx Alcohol Use: Yes Alcohol type: beer Alcohol Intake Frequency: Weekly Hx Substance Use: No Review of Systems Review of Systems: All systems reviewed & are unremarkable except as noted in HPI & below Physical Exam Constitutional: + morbidly obese, + physical limitations, cooperative and comfortable Strongly Malordorous Eyes: PERRL, conjunctivae normal, anicteric sclerae ENMT: Nose: no external nose abnormality Mouth: + tongue abnormality; no lip abnormality and no drooling Throat: uvula midline seborrheic dermatitis Neck: trachea midline; no anterior neck swelling Respiratory: normal respiratory effort, lungs clear to auscultation Cardiovascular: Rate/Rhythm: regular rate and regular rhythm Gastrointestinal (Abdomen): Percussion/Palpation: abdomen soft; abdomen nontender, no guarding and abdomen not rigid Musculoskeletal: Head/Neck/Chest: normocephalic and head atraumatic Left BKA; Right foot with abhi wrap with toes having appearance of distal punctate necrosis Skin: warm and dry Neurologic: CN's II-XI intact bilaterally and awake Psychiatric: A+Ox3, euthymic affect Results & Data Vital Signs (Past 12 Hours) Vital Signs Temp Pulse Pulse Resp BP BP Pulse Ox 09/04/19 19:01 81 18 92 09/04/19 19:00 80 20 131/70 92 09/04/19 18:52 82 20 133/77 97 09/04/19 18:50 84 14 93 09/04/19 18:40 87 13 93 09/04/19 18:30 87 19 133/77 93 09/04/19 18:20 87 14 93 09/04/19 18:10 85 25 H 94 09/04/19 18:00 83 21 143/77 H 95 02/02/20 17:50 82 17 93 09/04/19 17:40 87 21 93 09/04/19 17:30 85 13 153/84 H 94 09/04/19 17:20 87 19 94 09/04/19 17:10 83 16 94 09/04/19 17:01 86 22 151/84 H 96 09/04/19 17:00 85 86 15 151/84 H 96 09/04/19 16:50 86 12 94 09/04/19 16:45 82 17 95 09/04/19 16:40 86 16 94 09/04/19 16:31 84 19 95 09/04/19 16:30 84 19 123/80 95 09/04/19 16:20 86 18 94 09/04/19 16:16 87 18 122/71 95 09/04/19 16:11 88 20 120/78 96 09/04/19 16:10 85 14 96 09/04/19 16:01 89 18 96 09/04/19 16:00 88 16 120/78 96 09/04/19 15:50 91 H 14 96 09/04/19 15:45 90 13 126/75 96 09/04/19 15:43 37 C 92 H 20 143/77 H 96 09/04/19 15:42 92 H 19 143/77 H 97 09/04/19 15:41 37 C 96 H 20 143/77 H 97 09/04/19 15:40 93 H 16 96 09/04/19 15:38 37 C 93 H 18 122/80 97 09/04/19 15:32 37.0 C 94 H 24 122/80 97 09/04/19 15:31 96 H 14 97 09/04/19 15:30 97 H 15 122/80 97 09/04/19 15:24 37.1 C 94 H 20 132/68 96 09/04/19 15:21 96 H 21 132/68 95 09/04/19 15:20 37 C 95 H 16 107/83 96 09/04/19 15:17 93 H 14 96 09/04/19 15:00 100 H 92 H 13 107/83 122/80 95 09/04/19 14:25 37 C 92 H 20 119/77 96 Code Status & VTE Plan Code Status Full Code VTE Prophylaxis Plan VTE Prophylaxis will be ordered: Yes Supervising Physician Co-Signing Physician Notes Patient was seen and examined by me personally. I reviewed the chart, the orders and discussed the case in detail with Dr. Berry Alvarado DO . I read this H&P and agree with its contents to entirety. Resident Activity Tracking Resident Involvement: Resident Care Provided Care Provided: Adult Hospital Medicine (1) Pressure ulcer of ischium, stage 3 Laterality: right Qualified Code(s): L89.313 - Pressure ulcer of right buttock, stage 3 (2) Hypertension Hypertension type: essential hypertension Qualified Code(s): I10 - Essential (primary) hypertension
[2019-09-04] MEDS ORDERED: CLOPIDOGREL BISULFATE 75 MG TAB PO SCH (20:57)
[2019-09-04] MEDS ORDERED: ACETAMINOPHEN 500 MG TAB PO PRN (20:57)
[2019-09-04] MEDS ORDERED: NITROGLYCERIN SL 0.4 MG/TAB TAB SL PRN (20:57)
[2019-09-04] MEDS ORDERED: ATORVASTATIN 40 MG TAB PO SCH (21:00)
--- NOTE | 2019-09-04 21:17 | Critical Care Consultation ---
Date of Consultation September 04, 2019 Assessment & Plan (1) Angioedema: Reason Critically Ill: 59-year-old male admitted to the ICU following angioedema thought to be from lisinopril, high risk for requiring intubation. Angioedemapatient had lip and tongue swelling with difficulty swallowing and talking on arrival to the ED, likely culprit lisinopril which patient has been on for 5 years -He was given 50 mg IV Benadryl, 125 mg Solu-Medrol, dexamethasone, 2 units FFP -Patient symptoms vastly improved and he did not require intubation thus far -Given significance of angioedema edema and rapid onset, patient admitted for observation in ICU, likely discharge in a.m. -Patient instructed to discontinue lisinopril and follow-up with business professor and primary care Neuro - [facility] ICU: Negative Spina bifidachronic complications including neurogenic bladder, patient self caths. No acute issues at this time. Cardiac - CAD/history of FL [id number] post stent x2 -Continue home meds, holding lisinopril for angioedema -Monitor on telemetry CHFcontinue home dose Lasix - PVDcontinue home meds, aspirin Plavix Lipitor Respiratory - Patient does not report shortness of breath, will continue to monitor on pulse ox, see treatment angioedema above We will monitor in ICU overnight as patient is high risk for rapid decompensation from angioedema and requiring emergent intubation GI - N.p.o. overnight RENAL/LYTES - Creatinine stable, replete electrolytes as necessary - Neurogenic bladderpatient self caths at home -We will straight cath as indicated and strict I's and O's ENDO - No history diabetes or thyroid disease, hemoglobin A1c on prior admission 6.4 ICU hyperglycemic protocol HEME - H&H stable ID - No indication for infectious process at this time Pressure ulcer right lower extremitypatient reports following as outpatient for wound clinic -Not currently treating with antibiotics, thought to be from arterial insufficiency which he is scheduled for right lower extremity arterial stenting later this month at [place] LINES/IV ACCESS - Peripheral IVs DVT PROPHYLAXIS - Lovenox Thank you for allowing us to participate in the care of this patient. Please refer to my attending physician's documentation for any further recommendations. (2) Morbid obesity: (3) PAD (peripheral artery disease): (4) H/O heart artery stent: (5) Elevated hemoglobin A1c: (6) Spina bifida of lumbar region: (7) Neuropathic pain of lower extremity: (8) Neurogenic bladder: (9) CAD (coronary artery disease): History of Present Illness Attending Physician: Luis Tovar DO History of Present Illness Mr. Whitney is a 59-year-old male with past medical history of HTN, HLD, FL status post stent, spina bifida with neurogenic bladder, PVD, left BKA, right lower extremity pressure ulcers who was making breakfast this morning when he noticed his and started to itch. His lips tongue and throat began to swell and he was having difficulty swallowing and speaking. He called his daughter who lives next door who called 911. EMS responded and found the patient to have angioedema, of note patient is on lisinopril. He was taken to the emergency department and treated with Decadron, Solu-Medrol, Benadryl IV along with FFP x2. Anesthesia was consulted as patient would be difficult intubation, however symptoms began to improve. Anesthesia recommended observing patient in ICU overnight which I agree given rapid onset of symptoms previously today. On arrival to ICU patient is not having difficulty speaking and speech is clear. There is mild swelling in his lips and tongue which he states is significantly improved from earlier today. He also reports a mildly sore throat that he rates 1 out of 10. There is no wheezing or stridor on exam. Patient is a Mallampatti 3 on exam. He denies headache, dizziness, shortness of breath, chest pain, palpitations, or abdominal pain. He reports no changes in voiding or bowel movements. Patient reports complete loss of sensation of right lower extremity which is chronic. He has a pressure ulcer to the right lower extremity which he is followed by a wound care at [facility]. He is scheduled for arterial stenting of right lower extremity at [place] later this month. Will observe in ICU overnight with likely discharge tomorrow morning. Allergies Allergy/AdvReac Type Severity Reaction Status Date / Time lisinopril Allergy Severe angioedema Verified 09/05/19 07:55 Home Medications Home Medications Medication Instructions Recorded Confirmed Type aspirin 81 mg tablet,delayed 81 mg PO DAILY 03/29/18 09/04/19 History release clopidogrel 75 mg tablet 75 mg PO .ON HOLD 03/29/18 09/04/19 History multivitamin 1 cap PO DAILY 03/29/18 09/04/19 History nitroglycerin 0.4 mg sublingual 0.4 mg SL Q5M PRN 03/29/18 09/04/19 History tablet atorvastatin 80 mg tablet 80 mg PO HS 02/16/19 09/04/19 History oxybutynin chloride 15 mg 15 mg PO DAILY #90 tab 03/21/19 09/04/19 Rx tablet,extended release 24 hr furosemide 20 mg tablet 40 mg PO DAILY tab 07/22/19 09/04/19 History acetaminophen [Tylenol Extra 1,000 mg PO Q6H PRN 09/04/19 09/04/19 History Strength] Patient History Medical History (Updated 09/04/19 @ 17:29 by Zunilda Dunne) ACS (acute coronary syndrome) (Resolved) Anemia (Chronic) CAD (coronary artery disease) (Chronic) Dyslipidemia (Chronic) Elevated hemoglobin A1c Epididymitis (Resolved) Folate deficiency (Chronic) Gross hematuria (Acute) HTN (hypertension) (Chronic) Ischemic cardiomyopathy (Chronic) Morbid obesity Neurogenic bladder (Chronic) Neuropathic pain of lower extremity (Chronic) S/p left hip fracture Spina bifida (Chronic) Spina bifida of lumbar region (Acute) STEMI (ST elevation myocardial infarction) (Resolved) Vitamin D deficiency (Chronic) Surgical History (Updated 09/04/19 @ 15:16 by Susan Mitchell DO) H/O colonoscopy H/O heart artery stent S/P AKA (above knee amputation) (Chronic) left, secondary to infection S/P arterial stent (Resolved) S/P cystoscopy S/P hip replacement (Resolved) Status post skin graft Social History Preferred Language: Welsh Communication Ability: Effective Visual Impairment: Limited Hearing Ability: Normal Beliefs That Will Affect Care: None marital status: Current Living Situation: Alone Feels Safe at Home: Yes Smoking Status: Former smoker Tobacco Type: cigarettes ; Second Hand Exposure: No ; Hx Alcohol Use: Yes Alcohol type: beer Alcohol Intake Frequency: Weekly Hx Substance Use: No Review of Systems Review of Systems: All systems reviewed & are unremarkable except as noted in HPI & below Physical Exam Constitutional: WD/WN, vitals as above + morbidly obese and comfortable Eyes: PERRL, conjunctivae normal, anicteric sclerae ENMT: external ear and nose normal, oropharynx normal Mallampati Class: III Neck: trachea midline, no thyromegaly + neck tender and + thick neck; no anterior neck swelling and no submandibular swelling Respiratory: normal respiratory effort, lungs clear to auscultation able to speak in complete sentences and symmetric chest movement; does not use accessory muscles, no cough, not tachypneic, expiratory phase not prolonged and no stridor Cardiovascular: RRR, no murmur, no edema Rate/Rhythm: regular rate and regular rhythm Heart Sounds: normal S1 and normal S2 Vessels: no JVD Extremities: + edema Gastrointestinal (Abdomen): Abdomen obese, soft, nontender, bowel sounds present all quadrants Skin: Pressure ulcer of the left lower extremity, BKA right lower extremity Neurologic: PERRL, EOMI, accommodation nl, no face palsy, no dysarthria Psychiatric: A+Ox3, euthymic affect Results & Data ([facility]) Vital Signs (Past 12 Hours) Vital Signs Temp Pulse Pulse Resp BP BP Pulse Ox 09/04/19 20:10 79 17 91 09/04/19 20:01 82 18 90 09/04/19 20:00 82 18 114/74 90 09/04/19 19:50 94 H 16 93 09/04/19 19:40 83 17 90 09/04/19 19:31 83 18 09/04/19 19:30 82 19 149/73 H 91 09/04/19 19:20 87 20 93 09/04/19 19:10 83 16 93 09/04/19 19:01 81 18 92 09/04/19 19:00 80 20 131/70 92 09/04/19 18:52 82 20 133/77 97 09/04/19 18:50 84 14 93 09/04/19 18:40 87 13 93 09/04/19 18:30 87 19 133/77 93 09/04/19 18:20 87 14 93 09/04/19 18:10 85 25 H 94 09/04/19 18:00 83 21 143/77 H 95 09/04/19 17:50 82 17 93 09/04/19 17:40 87 21 93 09/04/19 17:30 85 13 153/84 H 94 09/04/19 17:20 87 19 94 09/04/19 17:10 83 16 94 09/04/19 17:01 86 22 151/84 H 96 09/04/19 17:00 85 86 15 151/84 H 96 09/04/19 16:50 86 12 94 09/04/19 16:45 82 17 95 09/04/19 16:40 86 16 94 09/04/19 16:31 84 19 95 09/04/19 16:30 84 19 123/80 95 09/04/19 16:20 86 18 94 09/04/19 16:16 87 18 122/71 95 09/04/19 16:11 88 20 120/78 96 09/04/19 16:10 85 14 96 09/04/19 16:01 89 18 96 09/04/19 16:00 88 16 120/78 96 09/04/19 15:50 91 H 14 96 09/04/19 15:45 90 13 126/75 96 09/04/19 15:43 37 C 92 H 20 143/77 H 96 09/04/19 15:42 92 H 19 143/77 H 97 09/04/19 15:41 37 C 96 H 20 143/77 H 97 09/04/19 15:40 93 H 16 96 09/04/19 15:38 37 C 93 H 18 122/80 97 09/04/19 15:32 37.0 C 94 H 24 122/80 97 09/04/19 15:31 96 H 14 97 09/04/19 15:30 97 H 15 122/80 97 09/04/19 15:24 37.1 C 94 H 20 132/68 96 09/04/19 15:21 96 H 21 132/68 95 09/04/19 15:20 37 C 95 H 16 107/83 96 09/04/19 15:17 93 H 14 96 09/04/19 15:00 100 H 92 H 13 107/83 122/80 95 09/04/19 14:25 37 C 92 H 20 119/77 96 [place] [address] Office/OBS Consult Lvl 4 Patient Type New Medical Decision Making Moderate Complexity Diagnoses Angioedema T78.3XXA Morbid obesity E66.01 PAD (peripheral artery disease) I73.9 H/O heart artery stent Z95.5 Elevated hemoglobin A1c R73.09 Spina bifida of lumbar region Q05.7 Neuropathic pain of lower extremity M79.2 Neurogenic bladder N31.9 CAD (coronary artery disease) I25.10
[2019-09-04] MEDS: SODIUM CHLORIDE 0.9% 1000ML 1,000 ML IV SCH (21:23)
[2019-09-04] MEDS: FAMOTIDINE 40 MG TABLET PO SCH (21:28)
[2019-09-05] MEDS: SODIUM CHLORIDE 0.9% 1000ML 1,000 ML IV SCH (05:06)
--- NOTE | 2019-09-05 06:37 | Billing Data ---
Date of Service September 04, 2019 Coding Level of Care Code 14124 OBS Care - Level 3
[2019-09-05 06:45] LABS: Hematocrit (blood only) 38.5 % (42-52); Hemoglobin 12.9 g/dL (14.0-18.0); Immature Granulocytes # (auto) 0.05 K/uL (0.00-0.02); Immature Granulocytes % (auto) 0.3 %; Lymphocytes # (auto) 0.99 K/uL (1.2-3.4); Lymphocytes % (auto) 6.6 %; Mean Corpuscular Hemoglobin 28.8 pg (25-34); Mean Corpuscular Hgb Conc 33.5 g/dL (32-36); Mean Corpuscular Volume 85.9 fL (80-100); Monocytes # (auto) 0.65 K/uL (0.11-0.59); Monocytes % (auto) 4.3 %; Neutrophils % (auto) 88.8 %; Platelet Count 453 K/uL (130-400); RDW Coefficient of Variation 15.2 % (11.5-14.5); RDW Standard Deviation 47.9 fL (36.4-46.3); Red Blood Count 4.48 M/uL (4.7-6.1); White Blood Count 15.09 K/uL (4.8-10.8)
[2019-09-05 07:06] LABS: BUN Creatinine Ratio 22.5 (10-20); Calcium 8.7 mg/dl (8.5-10.1); Est GFR (African American) 101.1; Est GFR (Non-African American) 87.3; Potassium 3.9 mmol/L (3.5-5.1)
[2019-09-05] MEDS: FAMOTIDINE 40 MG TABLET PO SCH (07:44)
--- NOTE | 2019-09-05 07:54 | Discharge Summary ---
Date of Service September 05, 2019 Admission HPI Per Admitting Provider Mr. Tom Whitney is a 59 y/o male with past medical hx of HTN, HLD, ischemic cardiomyopathy (40-45% January 2013, resolved September 2015), CAD (ALMI mLAD URIAH January 2013, AMI pLAD URIAH September 2015), neurogenic bladder, spina bifida, pressure ulcers, morbid obesity who presented to [facility] with Angioedema. He notes eating his usual breakfast this morning of eggs and toast. He took his usual medications, including Lisinopril which he's been on since 2011. He started to have swelling of his tongue. Denies any trouble breathing, chest pains, ingestion of any other new foods, using any new household products, and has never had this before. His daughter finally directed him to the ED for evaluation. Here in ED he notes feeling improved status post treatment with Decadron, Solu-medrol, Benadryl 50mg IV. He denied any eye-lid swelling. Anesthesia was consulted and recommendations were for ICU observation of airway and if needing intubation would recommend it be done in OR. Principal Diagnosis Angioedema, adverse effect due to Lisinopril Discharge Exam Constitutional WD/WN, vitals as above Eyes PERRL, conjunctivae normal, anicteric sclerae ENMT external ear and nose normal, oropharynx normal (No swelling of lips, tongue) Neck trachea midline, no thyromegaly Respiratory normal respiratory effort, lungs clear to auscultation Cardiovascular RRR, no murmur, no edema Gastrointestinal (Abdomen) normal bowel sounds, soft, nontender, no hepatosplenomegaly Musculoskeletal Head/Neck/Chest: normocephalic and head atraumatic Extremities: extremities normal to inspection, + abnormal strength (Generalized weakness in lower legs) and + muscle atrophy (Lower legs); no cyanosis and no clubbing Skin no rashes, warm and dry Neurologic patellar DTR's 2+ bilat, sensation intact and PERRL, EOMI, accommodation nl, no face palsy, no dysarthria Psychiatric A+Ox3, euthymic affect Lymphatic no cervical or axillary lymphadenopathy Discharge Data Allergies Allergy/AdvReac Type Severity Reaction Status Date / Time lisinopril Allergy Severe angioedema Verified 09/05/19 07:55 Consultations 09/04/19 18:10 ED Decision to Admit Stat 02/02/20 20:57 Consult Case Management - Discharge Planning Routine Consult City Car[employer] Assistant Stat Hospital Course (1) Angioedema: due to Lisinopril resolved quickly after Benadryl, Solu Medrol no swelling at the time of discharge, he says he feels normal instructed to not take RAMON inhibitors and [facility] updated allergy list blood pressure stable off of lisinopril and he was only on 5mg will follow up with PCP in one week (2) Medication side effect: again, RAMON inhibitors added to allergy list as severe reaction effects are resolved (3) Morbid obesity: (4) H/O heart artery stent: continue antiplatelets no chest pain/pressure can follow with Dr. Packer, routine (5) PAD (peripheral artery disease): (6) Pressure ulcer of toe of right foot, stage 2: (7) Elevated hemoglobin A1c: (8) Pressure ulcer of ischium, stage 3: (9) Pressure ulcer of left ischium, stage 2: (10) Spina bifida of lumbar region: (11) Neuropathic pain of lower extremity: (12) Hypertension: (13) Dyslipidemia: Total Time Total Time Spent Total Time Spent (In Minutes): 20 minutes Total Time Includes: Examination of the Patient, Discharge Planning and Medication Reconciliation Discharge Plan Discharge Items Patient Disposition: Home - Self-Care Reason For Visit: ANGIOEDEMA Discharge Diagnosis: Angioedema due to reaction to Lisinopril Condition on Discharge: Good Goals: avoid RAMON inhibitors, ARBs in the future monitor for any swelling Activity: Resume your previous activity Non-emergency contact: Primary Care Provider Call non-emergency contact if: you have any medication questions and your symptoms worsen Follow-up/Referrals: Paige Fair MD [Primary Care Provider] - Diet: Heart Healthy Addtl Attending Provider Instructions: Medications: - LISINOPRIL: STOP taking this medication as it is the culprit for causing angioedema - BENADRYL: take 50mg as needed for any recurrent swelling Angioedema, reaction to Lisinopril well known reaction to RAMON inhibitors, can occur at any time even though you have been on medication for years after the initial swelling resolves the typical treatment is to hold all further RAMON inhibitors should also avoid Angiotensin receptor blockers (ARBs) in the future your dose of Lisinopril was only 5mg so this was likely not having effect on blood pressure recommend following up with Dr. Baitel either late this week or early next week, call her office for appt if you have further swelling you can treat with Benadryl if the swelling gets more severe again then return to the ED, however, this is unlikely Pending Studies at Discharge: No Stand-Alone Forms: My [facility], Smoking Cessation Medications and DC Order Prescriptions: Continued aspirin 81 mg tablet,delayed release (DR/EC) 81 mg PO DAILY RF: 0 clopidogrel 75 mg tablet 75 mg PO .ON HOLD RF: 0 multivitamin capsule 1 cap PO DAILY RF: 0 nitroglycerin 0.4 mg tablet, sublingual 0.4 mg SL Q5M PRN (Reason: Chest Pain) RF: 0 atorvastatin 80 mg tablet 80 mg PO HS RF: 0 furosemide 20 mg tablet 40 mg PO DAILY RF: 0 oxybutynin chloride 15 mg tablet extended release 24hr 15 mg PO DAILY Qty: 90 RF: 3 acetaminophen [Tylenol Extra Strength] 500 mg Tablet 1,000 mg PO Q6H PRN (Reason: Pain) RF: 0 Discontinued lisinopril 5 mg tablet 5 mg PO DAILY RF: 0 Discharge Orders: Discharge Order (Routine); Ordered 09/05/19 Ordered By: Saman Zambrano Admission Data Admit Date/Time: 09/04/19 19:38 Attending Provider: Saman Zambrano Admit Provider: Berry Alvarado Primary Care Provider: Paige Fair Other Providers: Clara Burroughs ; Christiano Draper Other Interventions: Discharge Summary Assessment (RN) Last Done: 09/05/19 07:56 DC Date/Time DO NOT enter until pt leaves facility: 09/05/19 08:17 Coding Level of Care Code D/C Day Management <30 mins Diagnoses Angioedema T78.3XXA Medication side effect T88.7XXA Morbid obesity E66.01 H/O heart artery stent Z95.5 PAD (peripheral artery disease) I73.9 Pressure ulcer of toe of right foot, stage 2 L89.892 Elevated hemoglobin A1c R73.09 Pressure ulcer of ischium, stage 3 L89.313 Laterality: right Pressure ulcer of left ischium, stage 2 L89.322 Spina bifida of lumbar region Q05.7 Neuropathic pain of lower extremity M79.2 Hypertension I10 Hypertension type: essential hypertension Dyslipidemia E78.5
[2019-09-05] MEDS ORDERED: ENOXAPARIN INJ 40 MG/0.4 ML SYR SQ SCH (09:00)
[2019-09-05] MEDS ORDERED: MULTIVITAMIN TAB PO SCH (09:00)
[2019-09-05] MEDS ORDERED: OXYBUTYNIN CHLORIDE XL 5 MG TABCR PO SCH (09:00)
[2019-09-05] MEDS ORDERED: FUROSEMIDE 40 MG TAB PO SCH (09:00)
[2019-09-05] MEDS ORDERED: ASPIRIN 81 MG ECTAB PO SCH (09:00)
== END 2019-09-05 08:17 | disposition home or self-care (01) ==
LOC: ED 14:11 → 1E 14:11 → SUATTDRO 19:38 → 1E 20:24